=== PATIENT | male | born 1965 | race Caucasian/White ===

== ENCOUNTER 2017-04-12 12:43 | Inpatient (IN) | payer MEDICARE, OTHER ==
--- NOTE | ~2017-04-12 | CN ---
Consultation Report [facility] [place] [facility] [address] [place]. [address] NAME: LEONIE RODRIGUEZ : 63 STATUS : ADM IN [facility]#: [id number] AGE: 52 ADM/REG DATE : 04/12/17 MR#: [id number] REPORT SERV DATE: 04/13/17 DICTATED BY: DATE: REPORT STATUS : Draft TRANSCRIBED BY: MODL DATE: 04/13/17 NEUROLOGY CONSULTATION DATE OF CONSULTATION: 04/13/2017 REASON FOR CONSULT: Seizure. HISTORY OF PRESENT ILLNESS: This is a 52-year-old male with history of glioblastoma multiforme status post resection as well as symptomatic seizure, presented to [facility] as a transfer from Dr. Bourgeois's office as the patient was noted to be unresponsive and was noted to have shortness of breath. The patient was intubated and placed on propofol drip, with the patient's propofol drip turned off this morning. The patient afterwards was noted to have jerking of the head and shoulders and does not resolve as the reason patient was placed back on propofol and Neurology was consulted. No recent history of illness with fever, chills, nausea, vomiting was reported. The patient's sister discussed with the nursing staff and reports the patient does have difficulties with seizure control particularly when usp adjust the patient's seizure medications resulting in either seizure or unresponsive episodes. The patient is currently back on propofol infusion. The patient does not have any recent seizure medication adjustment after discharged from hospital in October 2016. PAST MEDICAL HISTORY: Significant for history of previous status epilepticus as well as history of seizure disorder, intractable. The patient does have a history of stroke as well as glioblastoma multiforme status post resection with the patient noted to have type 2 diabetes, and history of renal failure. SOCIAL HISTORY: Currently unable to be obtained. FAMILY HISTORY: Currently unable to be obtained. HOME MEDICATIONS: Consist of Keppra, Lamictal as well as Vimpat, all of which continued during current hospital stay. The patient in addition is also currently on propofol drip. REVIEW OF SYSTEMS: Unable to be obtained due to patient's mental status. PHYSICAL EXAMINATION: VITAL SIGNS: The patient's overnight vital signs demonstrated T-max of 99.1, heart rate of 62 to 95, respirations of 11 to 18, and blood pressure of 80 to 136 over 51 to 81. GENERAL: The patient is well developed, well nourished, in no acute distress. CARDIOVASCULAR: Regular rate and rhythm. No carotid bruits were otherwise auscultated. PULMONARY: Clear to auscultation bilaterally. NEUROLOGICAL: Generally, the patient is intubated on propofol sedation was on board. The patient does not follow any commands and does not have any verbal response. Pupils equal, Consultation Report [id number] [facility] [place]. [address] NAME: LEONIE RODRIGUEZ : 63 STATUS : ADM IN PAT#: [id number] AGE: 52 ADM/REG DATE : 04/12/17 MR#: [id number] REPORT SERV DATE: 04/13/17 DICTATED BY: DATE: REPORT STATUS : Draft TRANSCRIBED BY: MODL DATE: 04/13/17 round, and reactive to light. Horizontal eye movement was noted to be present on oculocephalic maneuver. Blink to threat response was absent in bilateral vision carcamo. The patient was noted to have corneal reflex in the left. No clear corneal reflex was seen on the right. Gag reflex was otherwise demonstrated, with the patient demonstrated grimace to noxious stimulation in bilateral jaw. The patient does demonstrate grimace as well as trace withdrawal to noxious stimulation in the bilateral upper extremity and right lower extremity. No withdrawal or grimace was noted in the left lower extremity noxious stimulation. Deep tendon reflex was otherwise trace. Gait and cerebellar examination was unable to be performed secondary to patient's mental status and intubation state. LABORATORY STUDIES: Demonstrated white blood cell count of 18.7, hemoglobin of 11.1, hematocrit of 32.9, platelet count of 266. Chemistry panel: Sodium of 142, potassium 4.3, chloride 111, bicarb of 20, BUN of 23, creatinine of 1.60, glucose of 275, calcium of 8.1, magnesium 1.6. Serum ammonia of 54. The patient was noted to have CPK over 556. CT scan of the brain on 04/12/2017 was reviewed. The patient was noted to have previous craniectomy in the left hemisphere, with the patient demonstrated encephalomalacia in the left MCA territory, in the left frontal as well as temporal area, with the patient noted to have atrophy and chronic white matter diseases. IMPRESSION: Seizure, likely symptomatic from previous GBM. We will increase the patient's Vimpat to 200 mg p.o. b.i.d. We will obtain EEG for evaluation on 04/14/2017. Please continue Keppra as well as Lamictal. RECOMMENDATION: 1. Increase the Vimpat to 200 mg p.o. b.i.d. 2. EEG on 04/14/2017. 3. Continue Keppra and Lamictal. [facility]/MODL Tutu Mendez MD / [id number] CC: Cori Robertson MD
--- NOTE | ~2017-04-12 | HP ---
History And Physical [id number] [place]. [address] NAME: LEONIE RODRIGUEZ : 63 STATUS : ADM IN [facility]#: [id number] AGE: 52 ADM/REG DATE : 04/12/17 MR#: [id number] REPORT SERV DATE: 04/25/17 DICTATED BY: FOSTER AGUERO DATE: 04/25/17 REPORT STATUS : Draft TRANSCRIBED BY: MODCharlotte DATE: 04/25/17 DATE OF ADMISSION: 04/12/2017 This note will serve both as an acceptance note as the patient is being transferred back to the Critical Care Service as well as a procedure note. HISTORY OF PRESENT ILLNESS: Mr. Rodriguez is an unfortunate, 52-year-old man with a history of glioblastoma multiforme with significant neurologic sequelae, poor neuro status, and chronic metabolic encephalopathy, who had recently been in the intensive care unit because of aspiration pneumonitis. He was stabilized and had a new PEG tube placed. He was on the medical floor and this morning, at around 6 o'clock, was found to be poorly responsive, hypoxemic, and a code blue was called. We responded to the bedside and found that the patient still had positive pressure but had agonal breathing. Respiratory Therapy, critical care nurses, and myself responded to the code, and the patient was intubated using a laryngoscope with good color change on end-tidal CO2 and good breath sounds bilaterally. He had high airway pressures as evidenced by very high resistance to bagging but his oxygenation stabilized, and we moved him to the critical care unit. His past medical history, social history, and family histories have been outlined on this admission on the notes from Critical Care and hospitalist. There was no family at bedside, and the patient was unresponsive. PHYSICAL EXAMINATION: GENERAL: On exam, he appears chronically ill. 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 NECK: Supple with no lymphadenopathy and no JVD. He was mottled throughout despite good blood pressure. LUNGS: Had a very prolonged expiratory phase and poor air flow. CARDIOVASCULAR: He had S1 and S2, which are tachycardic. ABDOMEN: Benign with a prior right subcostal long-term, well-healed scar. EXTREMITIES: He had no edema, no clubbing, no cyanosis, but poor peripheral pulses. ASSESSMENT/PLAN: 1. Respiratory failure. The patient has acute respiratory failure in the setting of poor mental status. The concern is for mechanical respiration. He does have a PEG tube but has very poor mental status and does not clear secretions well. In addition to that following intubation, for which he had very high peak pressures. The patient has a sulcus sign on the right consistent with pneumothorax. He is now oxygenating well on 100% oxygen saturation with a high blood pressure, so does not have tension physiology though of course this is of concern since he is on the ventilator, and he is having a repeat chest radiograph now and we will have a preferably smaller bore chest tube placed. 2. He will be started on electrolyte protocol, bronchodilator protocol, and steroids because of his high peak pressures and increased airway resistance. Care was discussed with the Hospitalist Service and with our colleagues from Critical Care who follow the patient up during the daytime. History And Physical [address] [address] NAME: LEONIE RODRIGUEZ : 63 STATUS : ADM IN [facility]#: [id number] AGE: 52 ADM/REG DATE : 04/12/17 MR#: [id number] REPORT SERV DATE: 04/25/17 DICTATED BY: FOSTER AGUERO DATE: 04/25/17 REPORT STATUS : Draft TRANSCRIBED BY: FINN DATE: 04/25/17 TASIA/FINN Foster Aguero M.D. / [id number] CC: Cori Robertson MD
--- NOTE | ~2017-04-12 | HP ---
History And Physical [address] [place]. [address] NAME: LEONIE RODRIGUEZ : 63 STATUS : ADM IN [facility]#: [id number] AGE: 52 ADM/REG DATE : 04/12/17 MR#: [id number] REPORT SERV DATE: 04/12/17 DICTATED BY: GUANAKITO BRIGGS DATE: 04/12/17 REPORT STATUS : Draft TRANSCRIBED BY: MODL DATE: 04/12/17 DATE OF ADMISSION: 04/12/2017 HISTORY OF PRESENT ILLNESS: A 52-year-old white male, who was transported to the hospital for further evaluation. The patient was seen in Dr. Bourgeois's office and found to be unresponsive and short of breath. The patient has a very complicated neurologic history, which includes seizures and previous history of glioblastoma resection and treatment. Apparently, he was on Rocephin a few days ago, and there was some concern of a drug reaction and that medication was stopped. The patient shows up in the emergency room hypotensive with a blood pressure of 86/58 and had been lower than that on some of the vitals. Due to mental status, underlying respiratory distress, and hypotension, the patient was intubated and put on the ventilator in the emergency room and also a left subclavian triple-lumen catheter was placed by the emergency room physician. In the ER, he was given at least 2 L of normal saline IV fluids. Given subcu epinephrine as well as one dose of Solu-Medrol, Pepcid, and Benadryl for possible drug reaction. He also had to be started on Levophed because of low blood pressure. He was sent to the CT scanner and head CT did not show anything acute. CT of the chest showed elevation of the right hemidiaphragm, which is chronic, which showed a right lower lobe consolidation concerning for pneumonia, and there is a little bit of a small right pleural fluid as well and some atelectasis at the left lung base. Family was not present upon my evaluation, so I have no other history to go by. REVIEW OF SYSTEMS: Unable to be obtained. PAST MEDICAL HISTORY: History of status epilepticus; chronic seizures; obstipation; stroke, which has left him unable to walk or speak, which happened in 2009; hypertension; history of glioblastoma; type 2 diabetes; history of renal failure. PAST SURGICAL HISTORY: Glioblastoma surgery and cholecystectomy. SOCIAL HISTORY: Unable to be obtained. FAMILY HISTORY: Unable to be obtained. HOME MEDICATIONS: Reviewed. PHYSICAL EXAMINATION: VITAL SIGNS: Per nursing flow sheet. GENERAL: No acute distress, but the patient is intubated on mechanical ventilation and sedated with propofol. ENT: Normocephalic and atraumatic. NECK: Trachea midline. SKIN: Diffuse light red rash that is blotchy on the face, arms, chest, and legs. HEART: Regular rate and rhythm. No murmurs. LUNGS: Clear anteriorly. Ventilator settings reviewed. Lower lobe rales. GASTROINTESTINAL: Slightly firm, distended, but nontender. No guarding or rebound. History And Physical [address] [address] NAME: LEONIE RODRIGUEZ : 63 STATUS : ADM IN [facility]#: [id number] AGE: 52 ADM/REG DATE : 04/12/17 MR#: [id number] REPORT SERV DATE: 04/12/17 DICTATED BY: GUANAKITO BRIGGS DATE: 04/12/17 REPORT STATUS : Draft TRANSCRIBED BY: FINN DATE: 04/12/17 GENITOURINARY: The patient is currently in a diaper and has a Hickey catheter in place. EXTREMITIES: No obvious edema in either legs. NEUROLOGIC: Sedated. LABORATORY VALUES: Reviewed. CT scans reviewed. ASSESSMENT AND PLAN: 1. Septic shock. 2. Respiratory failure-acute hypoxic. 3. Right lower lobe pneumonia, possible aspiration. 4. Acute kidney injury. 5. Elevated liver enzymes. 6. Hyperglycemia and type 2 diabetes. 7. Seizure history and stroke history with debilitation. 8. Previous glioblastoma. 9. Drug reaction. We will start the patient on broad-spectrum antibiotics to include vancomycin and Zosyn. The patient will be cultured blood, urine, and sputum. Urine antigens will be checked. Ventilator settings and management will be addressed. He is currently on propofol for sedation. As needed chest x-ray and ABGs will be done to follow. Aggressive fluid resuscitation as needed, and the patient is currently on pressors. We will check a C difficile. For now, we will keep patient on Benadryl and watch blood sugars. Put the patient on sliding scale of insulin. 55 minutes of critical care time. CEP/MODL Guanakito Briggs DO / [id number] CC: Cori Robertson MD UNKNOWN
--- NOTE | ~2017-04-12 | CN ---
Consultation Report [facility] [address] [place]. [address] NAME: LEONIE RODRIGUEZ : 63 STATUS : ADM IN PAT#: [id number] AGE: 52 ADM/REG DATE : 04/12/17 MR#: [id number] REPORT SERV DATE: 04/21/17 DICTATED BY: GWENDOLYN LIZAMA DATE: 04/20/17 REPORT STATUS : Draft TRANSCRIBED BY: MODL DATE: 04/20/17 CONSULTATION NOTE DATE OF CONSULTATION: 04/20/2017 HISTORY OF PRESENT ILLNESS: This is a 52-year-old white male, status post surgery for glioblastoma, admitted with seizures, recent aspiration pneumonia, was treated with Rocephin, had a drug reaction to that, was on the vent. Once extubated, had change in mental status, unable to follow commands. Baseline study to determine for aspiration was inconclusive, but they were unable to do modified barium swallow due to inability to follow commands and request has been made through hospitalist, Critical Care, and Neuro for PEG tube. He had a PEG tube in the past with aspirations and has had that out for some time. Also, has history of hypertension, diabetes mellitus, chronic kidney disease. He is status post cystectomy. He has had an ERCP in the past, sphincterotomy, and stone removal. Chest x-ray today with minimal right basilar atelectasis. Hemoglobin 11.8, white count of 9600. Family history, social history, otherwise unremarkable. Has an ultrasound that was essentially unremarkable. PHYSICAL EXAMINATION: GENERAL: Well-developed white male with expressive aphasia, unable to follow commands. HEENT: Has an NG-tube in place. NECK: Negative. CHEST: Scattered rhonchi. HEART: Regular rate and rhythm without murmur or gallop. ABDOMEN: Soft, nontender. Bowel sounds active. EXTREMITIES/NEUROLOGIC: Pertinent for his mental status. No current seizures. ASSESSMENT: 1. Status post glioblastoma with surgery; also has past history of seizure disorder, increased recently; aspiration pneumonia, treated with Rocephin, had a reaction to Rocephin, required intubation. Once off vent, change in mental status, unable to follow commands. Request for PEG tube. 2. Hypertension. 3. Diabetes mellitus. 4. Chronic renal disease. 5. Past history of cerebrovascular accident. SUGGESTION: Talked with sister about the risks and benefits. She agrees first to proceed on with PEG placement. Thank you very much for this consultation. Consultation Report [facility] [address] [place]. [address] NAME: LEONIE RODRIGUEZ : 63 STATUS : ADM IN [facility]#: [id number] AGE: 52 ADM/REG DATE : 04/12/17 MR#: [id number] REPORT SERV DATE: 04/21/17 DICTATED BY: GWENDOLYN LIZAMA DATE: 04/20/17 REPORT STATUS : Draft TRANSCRIBED BY: FINN DATE: 04/20/17 DC/FINN Gwendolyn Lizama M.D. / [id number] CC: Cori Robertson MD
--- NOTE | ~2017-04-12 | IDS ---
Interim Discharge Summary [facility] [address] [place]. [address] NAME: LEONIE RODRIGUEZ : 63 STATUS : ADM IN [facility]#: [id number] AGE: 52 ADM/REG DATE : 04/12/17 MR#: [id number] REPORT SERV DATE: 04/21/17 DICTATED BY: NICOLETTE CHA DATE: 04/21/17 REPORT STATUS : Draft TRANSCRIBED BY: MODL DATE: 04/21/17 ADMISSION DATE: 04/12/2017 DISCHARGE DATE: DATE OF SUMMARY: 04/21/2017. The patient has a history of glioblastoma multiforme. He entered the hospital with sepsis and septic shock, now resolved. He has a seizure disorder. He has diabetes mellitus type 2. He is awaiting PEG tube placement today. Has finished his antibiotic course of therapy. He is taking Lamictal 150 mg p.o. b.i.d. and Vimpat 150 mg p.o. b.i.d. as well as Keppra 1000 mg p.o. b.i.d. He is on Linzess for his bowels, and received Zosyn and Levemir. His x ray shows a chronically elevated right hemidiaphragm. He has had problems with mucus impaction of bronchi at outside, now partially resolved. He is being evaluated by [facility] for placement, and he has had several EEGs which show presence of generalized swelling and breach rhythm in left centrotemporal area suggesting preexisting skull defect. No seizures were captured at this point. He is allergic to Rocephin. KAMRAN/FINN Nicolette Cha M.D. / [id number] CC: Cori Robertson MD
--- NOTE | ~2017-04-12 | OP ---
Record Of Operation [facility] [address] [place]. [address] NAME: LEONIE RODRIGUEZ : 63 STATUS : ADM IN [facility]#: [id number] AGE: 52 ADM/REG DATE : 04/12/17 MR#: [id number] REPORT SERV DATE: 04/25/17 DICTATED BY: SHWETA SAUNDERS DATE: 04/25/17 REPORT STATUS : Draft TRANSCRIBED BY: FINN DATE: 04/25/17 DATE OF PROCEDURE: 04/25/2017 PULMONARY CRITICAL CARE MEDICINE PROCEDURE NOTE PROCEDURE: Insertion of a right Thal Quick 24-Montserratian chest tube. INDICATION: Right pneumothorax. CONSENT: Emergent, no family are available by telephone despite multiple phone calls to three separate numbers. ANESTHETIC: 1% lidocaine without epinephrine approximately 2 mL intradermally. PROCEDURE IN DETAIL: After being contacted by radiology for right pneumothorax noted on chest x-ray following code blue. The patient was positioned in the usual fashion. Prepped and draped using chlorhexidine and maximal sterile barriers including cap, gown, gloves, mask, and sterile drape, and a small bore needle was used to instill 1% lidocaine approximately 1 to 2 mL intradermally for satisfactory local anesthetic. Subsequently, a finder needle was used to advance into the right pleural space in the axillary line approximately 5th to 6th rib space and air bubbles were aspirated. Guidewire was fed through the finer needle and subsequently an 11 blade scalpel was used to make a small jessica, and subsequent dilators were passed using Seldinger technique, and ultimately a 24-Montserratian Thal Quick chest tube was inserted posterior to the right lung, and connected to an -10 suction with evacuation of the right pneumothorax. A followup chest x-ray confirmed placement of the tube posterior to the right lung, and evacuation of pneumothorax, and the tube was converted to water seal while the patient is on mechanical ventilation. Family was updated on the outcome of the procedure when they arrived for visiting hours later in the day. IMMEDIATE COMPLICATIONS: None. ESTIMATED BLOOD LOSS: Less than 1 mL. Please see separate handwritten Pulmonary Critical Care daily progress note for additional details of today's events. TRISTEN/FINN Shweta Saunders MD / [id number] Record Of Operation [address] [place]. [address] NAME: LEONIE RODRIGUEZ : 63 STATUS : ADM IN PAT#: [id number] AGE: 52 ADM/REG DATE : 04/12/17 MR#: [id number] REPORT SERV DATE: 04/25/17 DICTATED BY: SHWETA SAUNDERS DATE: 04/25/17 REPORT STATUS : Draft TRANSCRIBED BY: FINN DATE: 04/25/17 CC: Shweta Saunders MD
--- NOTE | ~2017-04-12 | DS ---
Discharge Summary [address] [place]. [address] NAME: LEONIE RODRIGUEZ : 63 STATUS : DIS IN PAT#: [id number] AGE: 52 ADM/REG DATE : 04/12/17 MR#: [id number] REPORT SERV DATE: 05/13/17 DICTATED BY: SATURNINO WEST DATE: 05/12/17 REPORT STATUS : Draft TRANSCRIBED BY: MODL DATE: 05/12/17 ADMISSION DATE: 04/12/2017 DISCHARGE DATE: 05/03/2017 The patient is a 52-year-old gentleman who was transported from Dr. Bourgeois's office, unresponsive and short of breath. He has had a glioblastoma and seizures and status epilepticus and was thought to be septic and in respiratory failure due to possibly to right lower lobe pneumonia. He also had acute kidney injury, probably shock liver, diabetes, and history of stroke. The patient was originally admitted on 04/12/2017. He declined over the next several weeks and on 05/03/2017 Palliative Care was consulted who recommended that the patient be moved to hospice for the inevitable end. This was done on 05/03/2017 in the evening. The patient actually the morning of 05/04/2017 at 0455 hours in the morning. In the meantime, we kept him comfortable with morphine and scopolamine patch for secretions and the patient peacefully at 0455 hours on 05/04/2017. DICTATED BY: Saturnino West MD GP/FINN Saturnino West MD / [id number] CC: Eugenio Loredo MD
--- NOTE | ~2017-04-12 | IDS ---
Interim Discharge Summary [facility] [address] [place]. [address] NAME: LEONIE RODRIGUEZ : 63 STATUS : ADM IN PAT#: [id number] AGE: 52 ADM/REG DATE : 04/12/17 MR#: [id number] REPORT SERV DATE: 04/28/17 DICTATED BY: SHWETA SAUNDERS DATE: 04/28/17 REPORT STATUS : Draft TRANSCRIBED BY: MODL DATE: 04/28/17 ADMISSION DATE: 04/12/2017 DISCHARGE DATE: Pulmonary Critical Care Interim Discharge Summary This interim summary will cover dates ranging from 04/24/2017 through 04/28/2017, during which I participated in his care. BRIEF HPI: Please see the multiple previous interim discharge summaries as well as Mr. Rodriguez's admitting history and physical from both the Hospital Medicine and Pulmonary Critical Care Medicine Service. Mr. Rodriguez is an unfortunate 52-year-old gentleman, who has a vague history of GBM, status post resection and subsequent chemo radiation in 1992 (there has been some question about the diagnosis due to his prolonged survival), who initially presented to our facility with a drug eruption from Dr. Bourgeois's office after being [facility]. He was staying in [place]. He was intubated for airway protection and stayed on mechanical ventilation in the MICU for some time. He was ultimately able to be extubated after aggressive diuresis and was moved to a monitored bed, where he remained for several days and ultimately developed aspiration event and acute hypoxemic respiratory failure leading to a Code Blue being called, although he never actually lost his pulse. He did have agonal breathing and he was intubated urgently by Dr. Aguero, and moved to CCU, where he remained for most of the week. He was initially quite hypoxemic, but over the course of the next couple of days was successfully weaned to minimal oxygen support. His sedation was lightened. He became more alert and awake, and he was visited multiple times by his sister who is his primary caregiver. In light of some questions that she had with regard to code status and planning for his future care, palliative care was consulted, and Dr. Terrazas, and nurse practitioner, Esther met with the patient and the patient's sister several times this week including one particularly prolonged meeting on 04/27/2017 greater than 90 minutes, during which time they clarified goals of care, and he was made a no shock, no CPR, no re- intubation, effectively a full DNR once extubated. His sister requested to be present for extubation and he was successfully liberated from the ventilator on the afternoon of 04/28/2017 and is now full DNR. He is tolerating minimal oxygen support and is much more interactive with his family, whose goals include ongoing care with goal of being able to discharge safely from the hospital within the parameters of being a full DNR as noted above. He is now being transferred to a monitored bed with the following active problems: 1. Acute hypoxemic respiratory failure, status post successful extubation on 04/28/2017, after multiple successful spontaneous breathing trials over the past couple of days (the patient's sister was fairly insistent that she be present for extubation, but was not answering her phone or at the bedside over the last 24 hours). She was actually present for visiting hours when he was ultimately extubated on the afternoon of 04/28/2017. 2. Recurrent aspiration pneumonia, status post insertion of PEG tube during this admission, status post course of antibiotics. 3. Tmicz-ww-fswzkjt encephalopathy, on multiple antiepileptic drugs. He is at this point, Interim Discharge Summary [address] [address] NAME: LEONIE RODRIGUEZ : 63 STATUS : ADM IN [facility]#: [id number] AGE: 52 ADM/REG DATE : 04/12/17 MR#: [id number] REPORT SERV DATE: 04/28/17 DICTATED BY: SHWETA SAUNDERS DATE: 04/28/17 REPORT STATUS : Draft TRANSCRIBED BY: MODCharlotte DATE: 04/28/17 at his neurologic baseline, and is being followed along by Dr. Mendez for encephalopathy and his seizure disorder. He had no seizures during this admission. 4. Right pneumothorax was detected on the morning of 04/25/2017. The patient has a chest tube in place, which was inserted for treatment of his pneumothorax, the suspicion is that when he was quite hypoxemic and being bagged during code blue event that this was the source of the pneumothorax. We will be consulting Dr. Francis to assist with ongoing clamping and ultimate removal of his chest tube on the floor. He has been on negative 10 suction over the last couple of days as he has developed recurrent small pneumothorax with water seal, also on positive-pressure ventilation. Now, he is extubated. We will begin additional trials of a clamping. He already has orders for tube to be clamped at 06:00 a.m. on the morning of 04/29/2017 and a followup chest x-ray a few hours later for Dr. Francis's assessment on Monday morning. 1. Type 2 diabetes mellitus with stable blood sugars, goal was 140 to 180 while critically ill. 2. Prophylaxis. He is on Lovenox and a proton pump inhibitor. 3. Home medications and tube feeds via PEG tube in addition to free water. 4. He has peripheral IVs and Hickey catheter, which can be removed after he finishes the course of diuretics that was started today. 5. He is a full DNR, please see Dr. Terrazas's advanced directive form completed on 04/27/2017 following family meeting with the patient's sister. 6. The patient's sister Matias Resendez, area code [phone] is his primary contact. There were several additional family members' contact information in the chart. The patient will be transferred to the Hospital Medicine Service this evening or tomorrow morning. Please call with questions. He has morning labs ordered for tomorrow. TRISTEN/FINN Shweta Saunders MD / [id number] CC: Shweta Saunders MD
--- NOTE | ~2017-04-12 | DS ---
Discharge Summary [facility] [address] [facility] [place]. [address] NAME: LEONIE RODRIGUEZ : 63 STATUS : DIS IN PAT#: [id number] AGE: 52 ADM/REG DATE : 04/12/17 MR#: [id number] REPORT SERV DATE: 05/04/17 DICTATED BY: ORVILLE LIANG DATE: 05/03/17 REPORT STATUS : Draft TRANSCRIBED BY: MODL DATE: 05/03/17 ADMISSION DATE: 04/12/2017 DISCHARGE DATE: 05/03/2017 DISCHARGE DISPOSITION: Hospice [facility]. Currently, inpatient hospice and transition to facility hospice. COMFORT MEASURES: DNR. DISCHARGE DIAGNOSES: 1. Recurrent aspiration pneumonia, status post insertion of PEG during this hospital stay and broad-spectrum antibiotics. 2. Acute hypoxic respiratory failure, requiring intubation. 3. Acute on chronic encephalopathy, on multiple antiepileptic drugs. 4. Right pneumothorax, prior chest tube and subsequent removal. 5. Type 2 diabetes. 6. Septic shock on arrival secondary to right lower lobe pneumonia with aspiration component. 7. Acute kidney injury, elevated liver enzymes on admission. 8. Hyperglycemia. 9. Stroke history with chronic debilitation. 10.Glioblastoma multiforme, drug reaction. HOSPITAL COURSE: Please see H and P for complete details of HPI along with multiple interim summaries from transitional care from ICU to floor throughout hospital stay. Briefly, Mr. Rodriguez is a 52-year-old male with chronic debility with glioblastoma multiforme, status post resection, chemo. Subsequently, seizure history, who was reported to have a drug eruption from Dr. Bourgeois's office for an elective EEG in residential at [facility]. He was intubated for airway protection, on mechanical vent, aggressively diuresed, did have aspiration component despite having PEG tube placement. He was still respiratory code. At that point, the patient was reintubated with hypoxia. Chest tube was placed with noted pneumothorax during respiratory code. The patient was then was also evaluated by Neurology throughout the course due to glioblastoma multiform and seizure history. Palliative Care was also consulted. The patient was DNR, was converted DNR due to continued overall clinical decline and worsening overall progress. After extubation, the patient was converted to BiPAP. Chest tube was able to be successfully removed with minimal drainage, however, the patient appears to have continued difficulty with protecting airway with repeat aspiration component due to overall debility, glioblastoma multiforme, seizure history, sepsis, hypoxemia, multiple intubations, and overall continued progressive decline. The patient now also had repeated radiologic whiteout of right lung with tachypnea, increased O2 demands continued at 48 hours with goals of care have been rediscussed with the patient's family as the patient has also had variable changes in creatinine output, alertness. The patient appears to be in the current active stages of an active dying process. Family requesting comfort measures. Hospice consulted and [facility] resuming care through possibly his final stages of life. All questions are processed. Goals were discussed in depth with the patient's sister at Discharge Summary [address] [place]. [address] NAME: LEONIE RODRIGUEZ : 63 STATUS : DIS IN PAT#: [id number] AGE: 52 ADM/REG DATE : 04/12/17 MR#: [id number] REPORT SERV DATE: 05/04/17 DICTATED BY: ORVILLE LIANG DATE: 05/03/17 REPORT STATUS : Draft TRANSCRIBED BY: MODL DATE: 05/03/17 bedside, who has been primary caregiver and power of deputy prosecuting attorney throughout this hospital stay. Radiologic findings have been reviewed and discussed by this typewriter ribbon winder. Palliative care team and Pulmonary team will continue to focus on quality, dignity, and comfort as a transition to hospice care. Greater than 30 minutes were spent with discharge planning. Discussion with the patient's family, coordinate of care. DICTATED BY: MD LING Mayberry/FINN Orville Liang MD / [id number] CC: Orville Liang MD
--- NOTE | ~2017-04-12 | EGD ---
EGD REPORT [facility] [address] [place]. [id number] NAME: LUIS ANTONIO RODRIGUEZ : 63 STATUS : ADM IN PAT#: [id number] AGE: 52 ADM/REG DATE : 04/12/17 MR#: [id number] REPORT SERV DATE: 04/21/17 DICTATED BY: GWENDOLYN LIZAMA DATE: 04/21/17 REPORT STATUS : Draft [facility]ANSCRIBED BY: [facility] DATE: 04/21/17 Endoscopy Center Patient Name: Luis Antonio Rodriguez Date of : 1965 Attending MD: GWENDOLYN LIZAMA MD Procedure Date No Time: 04/21/2017 Procedure: Upper GI endoscopy Indications: Place PEG due to impaired swallowing, Place PEG due to neurological disorder causing impaired swallowing Medicines: as per anesthesia Complications: No immediate complications. Procedure: Pre-Anesthesia Assessment: - ASA Grade Assessment: III - A patient with severe systemic disease. After obtaining informed consent, the endoscope was passed under direct vision. Throughout the procedure, the patient's blood pressure, pulse, and oxygen saturations were monitored continuously. The GIF [id number] was introduced through the mouth, and advanced to the third part of duodenum. The upper GI endoscopy was accomplished without difficulty. The patient tolerated the procedure. Findings: The examined esophagus was normal. A small hiatus hernia was present. The examined duodenum was normal. The patient was placed in the supine position for PEG placement. The stomach was insufflated to appose gastric and abdominal carranza. A site was located in the body of the stomach with good transillumination for placement. The abdominal wall was marked and prepped in a sterile manner. The area was anesthetized with 4 mL of 1% lidocaine. The trocar needle was introduced through the abdominal wall and into the stomach under direct endoscopic view. A snare was introduced through the endoscope and opened in the gastric lumen. The guide wire was passed through the trocar and into the open snare. The snare was closed around the guide wire. The endoscope and snare were removed, pulling the wire out through the mouth. A skin incision was made at the site of needle insertion. The externally removable 24 Fr EndoVive Safety gastrostomy tube was lubricated. The G-tube was tied to the guide wire and pulled through the mouth and into the stomach. The trocar needle was removed, and the gastrostomy tube was pulled out from the stomach through the skin. The external bumper was attached to the gastrostomy tube, and the tube was cut to remove the guide wire. The final position of the gastrostomy tube was confirmed by relook endoscopy, and skin marking EGD REPORT [address] [place]. [address] NAME: LUIS ANTONIO RODRIGUEZ : 63 STATUS : ADM IN LOC[facility]IN [facility]#: [id number] AGE: 52 ADM/REG DATE : 04/12/17 MR#: [id number] REPORT SERV DATE: 04/21/17 DICTATED BY: GWENDOLYN LIZAMA DATE: 04/21/17 REPORT STATUS : Draft TRANSCRIBED BY: [employer] DATE: 04/21/17 noted to be 2.5 cm at the external bumper. The final tension and compression of the abdominal wall by the PEG tube and external bumper were checked and revealed that the bumper was loose and lightly touching the skin and that the PEG balloon was loose and lightly touching the stomach. The feeding tube was capped, and the tube site cleaned and dressed. Impression: - Normal esophagus. - Hiatus hernia. - Normal examined duodenum. - An externally removable PEG placement was successfully completed. Recommendation: - Please follow the post-PEG recommendations. Procedure Code(s): --- Professional --- 22647, Esophagogastroduodenoscopy, flexible, transoral; with directed placement of percutaneous gastrostomy tube Diagnosis Code(s): --- Professional --- K44.9, Diaphragmatic hernia without obstruction or gangrene R13.10, Dysphagia, unspecified Z43.1, Encounter for attention to gastrostomy R29.81, Other symptoms and signs involving the nervous system CPT copyright 2013 [employer]. All rights reserved. The codes documented in this report are preliminary and upon thermal technician review may be revised to meet current compliance requirements. GWENDOLYN LIZAMA MD 04/21/2017 1:26 PM This report has been signed electronically. Number of Addenda: 0 Note Initiated On: 04/21/2017 12:41 PM Scope Withdrawal Time 0 hours 0 minutes 0 seconds [address] [place] [address]
--- NOTE | ~2017-04-12 | EEG ---
Electroencephalogram [facility] [address] [place]. [address] NAME: LEONIE RODRIGUEZ : 63 STATUS : ADM IN PAT#: [id number] AGE: 52 ADM/REG DATE : 04/12/17 MR#: [id number] REPORT SERV DATE: 04/14/17 DICTATED BY: DATE: REPORT STATUS : Draft TRANSCRIBED BY: MODL DATE: 04/14/17 CLINICAL INDICATIONS: Seizure-like activities. DESCRIPTION: This EEG was performed using 10/20 electrode placement system. During the EEG study, generalized slowing was seen with a predominant occipital rhythm of roughly 4-5 hertz. The patient was noted to have breach rhythm in T3 as well as C3 electrodes persistent throughout the EEG study. Otherwise, no electrographic seizure activity was noted. No seizure discharge was seen. The patient demonstrated involuntary perioral chewy motion during the EEG study, but no other clinical seizure-like activity was captured. No corresponding electrographic seizure was noted with chewing activities. The patient achieved drowsy state during the EEG study. Photic stimulation was performed, no clear driving response was seen. Hyperventilation was not performed secondary to the patient's intubation status. INTERPRETATION: This EEG study obtained during awake and drowsy state may be considered abnormal secondary to: 1. Presence of generalized slowing. 2. Breach rhythm in the left centrotemporal area, suggesting pre-existing skull defect. No electrographic seizure was otherwise captured. No seizure discharge was seen. The patient does demonstrate involuntary chewy motions during the EEG study without corresponding the electrographic seizures. Clinical correlation is otherwise recommended. [facility]/MODL Tutu Mendez MD / [id number] CC: Cori Robertson MD
[2017-04-12 12:09] LABS: BASOPHILS 0.1 %; BASOPHILS ABSOLUTE 0.01 10/3/uL (0.0-0.16); EOSINOPHILS 0.1 %; EOSINOPHILS ABSOLUTE 0.01 10/3/uL (0.0-0.53); ER CBC TAT 0 Hrs 08 Mins; HEMATOCRIT 45.9 % (40.0-51.0); HEMOGLOBIN 15.4 g/dL (13.6-17.8); IMMATURE GRANULOCYTES 2.4 %; IMMATURE GRANULOCYTES ABSOLUTE 0.21 10/3/uL (0.0-0.11); LYMPHOCYTES 6.9 %; LYMPHOCYTES ABSOLUTE 0.61 10/3/uL (0.67-4.30); MANUAL DIFF NO %; MEAN CORPUS HGB CONC 33.6 g/dL (32.0-36.0); MEAN CORPUSCULAR HEMOGLOB 30.4 pg (26.0-34.0); MEAN CORPUSCULAR VOLUME 90.5 fL (80-100); MEAN PLATELET VOLUME 9.8 fL (9.2-13.0); MONOCYTES ABSOLUTE 0.09 10/3/uL (0.21-1.20); NEUTROPHILS 89.5 %; NEUTROPHILS ABSOLUTE 7.97 10/3/uL (2.02-8.40); PLATELET COUNT 326 10/3/uL (150-400); RBC DISTRIBUTION WIDTH 13.9 % (12.0-16.0); RED CELL COUNT 5.07 10/6/uL (4.7-6.1); WHITE BLOOD CELLS 8.9 10/3/uL (4.5-10.5)
[2017-04-12 12:17] LABS: PROTIME (NOT ORD) 13.2 SEC (12.0-14.5)
[2017-04-12 12:25] LABS: A/G RATIO 0.6 (0.7-1.9); ALBUMIN 2.7 G/DL (3.5-5.0); CHLORIDE, SERUM 104 MMOL/L (96-112); CO2 (CARBON DIOXIDE) 23 MMOL/L (24-34); CREATININE 1.59 MG/DL (0.70-1.30); GFR AFRICAN AMERICAN 57 ML/MIN (>=60); GFR NON AFRICAN AMERICAN 49 ML/MIN (>=60); GLOBULIN 4.9 G/DL (2.5-4.1); SGOT(AST) 90 U/L (5-40); SGPT(ALT) 87 U/L (5-65); SODIUM, SERUM 141 MMOL/L (135-148); TOTAL BILIRUBIN 0.5 MG/DL (0-1.2); TOTAL PROTEIN 7.6 G/DL (6.0-8.5)
[2017-04-12 12:26] LABS: ALKALINE PHOSPHATASE 394 U/L (45-117); BUN (BLOOD UREA NITROGEN) 13 MG/DL (6-23); CALCIUM, SERUM 10.2 MG/DL (8.5-10.4); GLUCOSE, SERUM 227 MG/DL (60-99)
[~2017-04-12 12:43] MED LIST: *UNABLE3; ALOE VESTA TOP; AMARYL4 PO; APRES10B PO; ASAB PO; ATROVENTUD INH; CALMOSEPTINE O2.5 OZ TOP; CALTRAT600 PO; CEFT5 PO; CLEOCIN300 MG PO; CONSTULOSE PO; D 5000 PO; DEBROX6.5 % OT; DEP250 PO; DEPAKOT500 PO; DEPAKUDL PO; DIVALPROEX ER PO; DUONEB INH; GLUCAGON IM; GLUCAGON SC; GLUCOSE TABS PO; GLUCPH PO; HALF81 PO; INSNOVR SC; KEPPRA1000 MG PO; KETOCONAZOLE 2% TOP; LAMICTAL10 PO; LAMICTAL150 MG PO; LAMICTAL200 MG PO; LANTUS SC; LEVOTHYROXIN100 MCG PO; LEVOTHYROXIN88 MCG PO; LEXAPRO10 PO; LINZESS 145 M145 MCG PO; LIPITOR10 PO; LIPITOR20 PO; LOTRISONE CREAM15 GM T; MIRALAX POWDER1 PKT PO; MIRALAXPKT OR; MIRALAXPKT PO; MULTIPLE VIT PO; NITROSTAT0.4 MG SL; NIZORSHAM T; NIZORSHAM TOP; NORV25 PO; NOVOLOG SC; PEP20 PO; PEPCID40 MG PEG; PRILO PO; PRIN10 PO; PROTONIX PO; PROVHFA INH; SYN1 PO; SYN88 PO; T PO; TUMSROLL NGT; VIMPAT100 MG PO; VIMPAT50 MG PO; VITAMIN D1000 UNI1 PO; VITAMIN D31000 UNIT PO; XIFAXAN550 MG PO; [UNRECOGNIZED DRUG - OTHER]
[2017-04-12 12:53] LABS: BE (BASE EXCESS) -9.4 MEQ/L (0 +/- 2.5); CARBOXYHEMOGLOBIN 1.4 % (0-3); DEVICE NC; HEMOBLOGIN CONTENT 13.1 G/DL (14-18); INSTRUMENT SERIAL # 8087; METHEMOGLOBIN 0.3 % (0-3); O2 CONTENT 16.7 VOL% (18-24); PCO2 (CO2 TENSION) 29 MMHG (35-45); PO2 (O2 TENSION) 68 MMHG (79-93); SAMPLE Arterial; pH 7.33 (7.37-7.43)
[2017-04-12 13:16] LABS: ASCORBIC ACID (UR NOT ORDER) NEG (NEG); BILIRUBIN, URINE NEGATIVE (NEG); ER URINALYSIS TAT 0 Hrs 13 Mins; KETONE, URINE NEGATIVE (NEG); LEUKOCYTE ESTERASE(NOT OR NEG (NEG); NITRITE (URINE) NEG (NEG); WBC (NOT ORDERED) (RFLEX) 1 (0-5)
[2017-04-12 13:37] LABS: PROCALCITONIN 8.87 ng/mL (<0.5)
[2017-04-12 18:59] LABS: FREE T4 1.75 NG/DL (0.76-1.46)
[2017-04-12 19:05] LABS: TROPONIN I 0.11 NG/ML (<0.05); ULTRASENSITIVE TSH 0.739 MCIU/ML (0.358-3.740)
[2017-04-12 19:18] LABS: AMPHETAMINES (NOT ORD) NEG (NEG); BARBITURATES (NOT ORDERED NEG (NEG); BENZODIAZEPINES (NOT ORD) NEG (NEG); CANNABINOIDS (THC) NEG (NEG); COCAINE (NOT ORDERED) NEG (NEG); OPIATES NEG (NEG); PHENCYCLIDINE(PCP) NEG (NEG); TRICYCLICS NEG (NEG)
[2017-04-12 20:38] LABS: ALLENS TEST Pos; BE (BASE EXCESS) -6.8 MEQ/L (0 +/- 2.5); HCO3 (ACTUAL BICARBONATE) 16.8 MEQ/L (23-27); INSTRUMENT SERIAL # 8083; MODE SIMV; OPERATOR ID 31061; PCO2 (CO2 TENSION) 29 MMHG (35-45); PO2 (O2 TENSION) 175 MMHG (79-93); PRESSURE SUPPORT 15 cm.H2O; SAMPLE Arterial; TIDAL VOLUME 600 ML; pH 7.38 (7.37-7.43)
[2017-04-12 23:43] LABS: CHLORIDE, SERUM 108 MMOL/L (96-112); CO2 (CARBON DIOXIDE) 21 MMOL/L (24-34); CREATININE 1.86 MG/DL (0.70-1.30); GFR AFRICAN AMERICAN 47 ML/MIN (>=60); GFR NON AFRICAN AMERICAN 40 ML/MIN (>=60); PHOSPHORUS, SERUM 3.6 MG/DL (2.5-4.5); POTASSIUM, SERUM 4.6 MMOL/L (3.5-5.3); SODIUM, SERUM 141 MMOL/L (135-148)
[2017-04-12 23:46] LABS: BUN (BLOOD UREA NITROGEN) 21 MG/DL (6-23); CALCIUM, SERUM 8.2 MG/DL (8.5-10.4); GLUCOSE, SERUM 309 MG/DL (60-99)
[2017-04-13 00:17] LABS: MEAN CORPUS HGB CONC 34.1 g/dL (32.0-36.0); MEAN CORPUSCULAR HEMOGLOB 30.4 pg (26.0-34.0); MEAN CORPUSCULAR VOLUME 89.1 fL (80-100); MEAN PLATELET VOLUME 9.6 fL (9.2-13.0); PLATELET COUNT 271 10/3/uL (150-400); RBC DISTRIBUTION WIDTH 14.4 % (12.0-16.0)
[2017-04-13 00:18] LABS: HEMATOCRIT 34.3 % (40.0-51.0); HEMOGLOBIN 11.7 g/dL (13.6-17.8); RED CELL COUNT 3.85 10/6/uL (4.7-6.1); WHITE BLOOD CELLS 18.8 10/3/uL (4.5-10.5)
[2017-04-13 00:19] LABS: MANUAL DIFF YES %
[2017-04-13 00:55] LABS: BAND NEUTROPHILS 42 %; LYMPHOCYTES 2 %; LYMPHOCYTES ABSOLUTE (CALC) 0.38 10/3/uL (0.67-4.30); NEUTROPHILS ABSOLUTE (CALC) 18.42 10/3/uL (2.02-8.40); PLATELET ESTIMATE ADQ (ADEQUATE); SEGMENTED NEUTROPHIL (0) 56 %; TOTAL NUCLEATED CELLS 100; TOXIC GRANULATION 1+
[2017-04-13 00:57] LABS: BURR CELLS 1+ (3-10/OIF) (0-2/OIF)
[2017-04-13 03:46] LABS: BE (BASE EXCESS) -5.8 MEQ/L (0 +/- 2.5); CARBOXYHEMOGLOBIN 0.6 % (0-3); HEMOBLOGIN CONTENT 11.1 G/DL (14-18); INSTRUMENT SERIAL # 8083; METHEMOGLOBIN 0.1 % (0-3); MODE CMV; O2 CONTENT 15.5 VOL% (18-24); OPERATOR ID 23712; PCO2 (CO2 TENSION) 35 MMHG (35-45); PO2 (O2 TENSION) 126 MMHG (79-93); SAMPLE Arterial; TIDAL VOLUME 550 ML; pH 7.36 (7.37-7.43)
[2017-04-13 05:02] LABS: HEMATOCRIT 32.9 % (40.0-51.0); HEMOGLOBIN 11.1 g/dL (13.6-17.8); MEAN CORPUS HGB CONC 33.7 g/dL (32.0-36.0); MEAN CORPUSCULAR HEMOGLOB 30.2 pg (26.0-34.0); MEAN CORPUSCULAR VOLUME 89.4 fL (80-100); MEAN PLATELET VOLUME 9.2 fL (9.2-13.0); PLATELET COUNT 266 10/3/uL (150-400); RED CELL COUNT 3.68 10/6/uL (4.7-6.1); WHITE BLOOD CELLS 18.7 10/3/uL (4.5-10.5)
[2017-04-13 05:06] LABS: MANUAL DIFF YES %
[2017-04-13 05:20] LABS: BUN (BLOOD UREA NITROGEN) 23 MG/DL (6-23); CALCIUM, SERUM 8.1 MG/DL (8.5-10.4); CHLORIDE, SERUM 111 MMOL/L (96-112); CO2 (CARBON DIOXIDE) 20 MMOL/L (24-34); GFR AFRICAN AMERICAN 56 ML/MIN (>=60); GFR NON AFRICAN AMERICAN 48 ML/MIN (>=60); GLUCOSE, SERUM 275 MG/DL (60-99); POTASSIUM, SERUM 4.3 MMOL/L (3.5-5.3); SGOT(AST) 59 U/L (5-40); SGPT(ALT) 58 U/L (5-65); SODIUM, SERUM 142 MMOL/L (135-148); TOTAL BILIRUBIN 0.5 MG/DL (0-1.2)
[2017-04-13 05:27] LABS: A/G RATIO 0.5 (0.7-1.9); ALBUMIN 1.7 G/DL (3.5-5.0); ALKALINE PHOSPHATASE 213 U/L (45-117); GLOBULIN 3.6 G/DL (2.5-4.1); TOTAL PROTEIN 5.3 G/DL (6.0-8.5)
[2017-04-13 06:56] LABS: BAND NEUTROPHILS 37 %; BURR CELLS 1+ (3-10/OIF) (0-2/OIF); LYMPHOCYTES 2 %; LYMPHOCYTES ABSOLUTE (CALC) 0.37 10/3/uL (0.67-4.30); MONOCYTES 3 %; MONOCYTES ABSOLUTE (CALC) 0.56 10/3/uL (0.21-1.20); NEUTROPHILS ABSOLUTE (CALC) 17.77 10/3/uL (2.02-8.40); PLATELET ESTIMATE ADQ (ADEQUATE); SEGMENTED NEUTROPHIL (0) 58 %; TOTAL NUCLEATED CELLS 100
[2017-04-13 06:57] LABS: VACUOLATED NEUTROPHILES FEW
[2017-04-13 11:03] LABS: CPK 556 U/L (0-200); PHOSPHORUS, SERUM 4.2 MG/DL (2.5-4.5)
[2017-04-13 15:23] LABS: A/G RATIO 0.5 (0.7-1.9); ALBUMIN 1.8 G/DL (3.5-5.0); ALKALINE PHOSPHATASE 214 U/L (45-117); BUN (BLOOD UREA NITROGEN) 24 MG/DL (6-23); CALCIUM, SERUM 8.1 MG/DL (8.5-10.4); CHLORIDE, SERUM 112 MMOL/L (96-112); CO2 (CARBON DIOXIDE) 18 MMOL/L (24-34); CREATININE 1.78 MG/DL (0.70-1.30); GFR AFRICAN AMERICAN 49 ML/MIN (>=60); GFR NON AFRICAN AMERICAN 43 ML/MIN (>=60); GLOBULIN 3.7 G/DL (2.5-4.1); GLUCOSE, SERUM 362 MG/DL (60-99); POTASSIUM, SERUM 3.7 MMOL/L (3.5-5.3); SGOT(AST) 57 U/L (5-40); SGPT(ALT) 58 U/L (5-65); SODIUM, SERUM 143 MMOL/L (135-148); TOTAL BILIRUBIN 0.2 MG/DL (0-1.2); TOTAL PROTEIN 5.5 G/DL (6.0-8.5)
[2017-04-13 15:24] LABS: PREALBUMIN 9.2 MG/DL (17.0-43.0)
[2017-04-14 04:01] LABS: HEMATOCRIT 31.5 % (40.0-51.0); HEMOGLOBIN 10.7 g/dL (13.6-17.8); MANUAL DIFF YES %; MEAN CORPUSCULAR HEMOGLOB 29.9 pg (26.0-34.0); MEAN PLATELET VOLUME 9.5 fL (9.2-13.0); PLATELET COUNT 309 10/3/uL (150-400); RBC DISTRIBUTION WIDTH 14.3 % (12.0-16.0); RED CELL COUNT 3.58 10/6/uL (4.7-6.1); WHITE BLOOD CELLS 21.6 10/3/uL (4.5-10.5)
[2017-04-14 04:13] LABS: BUN (BLOOD UREA NITROGEN) 27 MG/DL (6-23); CALCIUM, SERUM 8.4 MG/DL (8.5-10.4); CHLORIDE, SERUM 111 MMOL/L (96-112); CREATININE 1.44 MG/DL (0.70-1.30); GFR AFRICAN AMERICAN 64 ML/MIN (>=60); GFR NON AFRICAN AMERICAN 55 ML/MIN (>=60); GLUCOSE, SERUM 330 MG/DL (60-99); PHOSPHORUS, SERUM 3.6 MG/DL (2.5-4.5); POTASSIUM, SERUM 3.4 MMOL/L (3.5-5.3); SODIUM, SERUM 145 MMOL/L (135-148)
[2017-04-14 04:16] LABS: CO2 (CARBON DIOXIDE) 23 MMOL/L (24-34)
[2017-04-14 04:32] LABS: BE (BASE EXCESS) -2.9 MEQ/L (0 +/- 2.5); CARBOXYHEMOGLOBIN 0.5 % (0-3); HCO3 (ACTUAL BICARBONATE) 20.9 MEQ/L (23-27); HEMOBLOGIN CONTENT 8.6 G/DL (14-18); INSTRUMENT SERIAL # 8083; METHEMOGLOBIN 0.2 % (0-3); MODE CMV; O2 CONTENT 12.1 VOL% (18-24); OPERATOR ID 35190; PCO2 (CO2 TENSION) 32 MMHG (35-45); PO2 (O2 TENSION) 121 MMHG (79-93); SAMPLE Arterial; pH 7.43 (7.37-7.43)
[2017-04-14 04:33] LABS: ALLENS TEST Pos; TIDAL VOLUME 550 ML
[2017-04-14 04:43] LABS: BAND NEUTROPHILS 1 %; LYMPHOCYTES 3 %; LYMPHOCYTES ABSOLUTE (CALC) 0.65 10/3/uL (0.67-4.30); MONOCYTES 1 %; MONOCYTES ABSOLUTE (CALC) 0.22 10/3/uL (0.21-1.20); NEUTROPHILS ABSOLUTE (CALC) 20.74 10/3/uL (2.02-8.40); PLATELET ESTIMATE ADQ (ADEQUATE); RBC MORPHOLOGY NORM (NORMAL); SEGMENTED NEUTROPHIL (0) 95 %; TOTAL NUCLEATED CELLS 100
[2017-04-14 04:51] LABS: PROCALCITONIN 58.18 ng/mL (<0.5)
[2017-04-15 03:49] LABS: BE (BASE EXCESS) -0.1 MEQ/L (0 +/- 2.5); CARBOXYHEMOGLOBIN 0.3 % (0-3); HCO3 (ACTUAL BICARBONATE) 24.6 MEQ/L (23-27); HEMOBLOGIN CONTENT 10.7 G/DL (14-18); INSTRUMENT SERIAL # 8083; METHEMOGLOBIN 0.1 % (0-3); MODE CMV; OPERATOR ID 13415; PCO2 (CO2 TENSION) 41 MMHG (35-45); PO2 (O2 TENSION) 132 MMHG (79-93); SAMPLE Arterial; TIDAL VOLUME 550 ML
[2017-04-15 04:35] LABS: BASOPHILS 0.1 %; BASOPHILS ABSOLUTE 0.01 10/3/uL (0.0-0.16); EOSINOPHILS 0 %; HEMATOCRIT 30.4 % (40.0-51.0); HEMOGLOBIN 10.2 g/dL (13.6-17.8); IMMATURE GRANULOCYTES 0.5 %; IMMATURE GRANULOCYTES ABSOLUTE 0.07 10/3/uL (0.0-0.11); LYMPHOCYTES 6.9 %; LYMPHOCYTES ABSOLUTE 0.98 10/3/uL (0.67-4.30); MEAN CORPUS HGB CONC 33.6 g/dL (32.0-36.0); MEAN CORPUSCULAR HEMOGLOB 29.9 pg (26.0-34.0); MEAN CORPUSCULAR VOLUME 89.1 fL (80-100); MEAN PLATELET VOLUME 9.7 fL (9.2-13.0); MONOCYTES 5.6 %; NEUTROPHILS 86.9 %; NEUTROPHILS ABSOLUTE 12.39 10/3/uL (2.02-8.40); PLATELET COUNT 278 10/3/uL (150-400); RBC DISTRIBUTION WIDTH 14.9 % (12.0-16.0); RED CELL COUNT 3.41 10/6/uL (4.7-6.1); WHITE BLOOD CELLS 14.3 10/3/uL (4.5-10.5)
[2017-04-15 04:37] LABS: MANUAL DIFF NO %
[2017-04-15 04:47] LABS: BUN (BLOOD UREA NITROGEN) 31 MG/DL (6-23); CALCIUM, SERUM 8.6 MG/DL (8.5-10.4); CHLORIDE, SERUM 114 MMOL/L (96-112); CO2 (CARBON DIOXIDE) 26 MMOL/L (24-34); CREATININE 1.15 MG/DL (0.70-1.30); GFR AFRICAN AMERICAN 84 ML/MIN (>=60); GFR NON AFRICAN AMERICAN 72 ML/MIN (>=60); GLUCOSE, SERUM 175 MG/DL (60-99); PHOSPHORUS, SERUM 2.4 MG/DL (2.5-4.5); POTASSIUM, SERUM 3.5 MMOL/L (3.5-5.3); SODIUM, SERUM 148 MMOL/L (135-148)
[2017-04-15 19:52] LABS: BUN (BLOOD UREA NITROGEN) 31 MG/DL (6-23); CALCIUM, SERUM 8.6 MG/DL (8.5-10.4); CHLORIDE, SERUM 109 MMOL/L (96-112); CO2 (CARBON DIOXIDE) 29 MMOL/L (24-34); GFR AFRICAN AMERICAN 88 ML/MIN (>=60); GFR NON AFRICAN AMERICAN 76 ML/MIN (>=60); GLUCOSE, SERUM 154 MG/DL (60-99); PHOSPHORUS, SERUM 2.7 MG/DL (2.5-4.5); SODIUM, SERUM 146 MMOL/L (135-148); VANCOMYCIN TROUGH 17.5 MCG/ML (10.0-20.0)
[2017-04-15 19:55] LABS: POTASSIUM, SERUM 4.7 MMOL/L (3.5-5.3)
[2017-04-16 04:33] LABS: ALBUMIN 2.3 G/DL (3.5-5.0); BUN (BLOOD UREA NITROGEN) 33 MG/DL (6-23); CALCIUM, SERUM 9.4 MG/DL (8.5-10.4); CHLORIDE, SERUM 104 MMOL/L (96-112); CO2 (CARBON DIOXIDE) 32 MMOL/L (24-34); CREATININE 1.05 MG/DL (0.70-1.30); GFR AFRICAN AMERICAN 93 ML/MIN (>=60); GFR NON AFRICAN AMERICAN 81 ML/MIN (>=60); PHOSPHORUS, SERUM 2.8 MG/DL (2.5-4.5); POTASSIUM, SERUM 3.9 MMOL/L (3.5-5.3); SODIUM, SERUM 147 MMOL/L (135-148)
[2017-04-16 04:36] LABS: GLUCOSE, SERUM 82 MG/DL (60-99)
[2017-04-16 04:51] LABS: BASOPHILS 0.2 %; BASOPHILS ABSOLUTE 0.02 10/3/uL (0.0-0.16); EOSINOPHILS 0.4 %; EOSINOPHILS ABSOLUTE 0.04 10/3/uL (0.0-0.53); HEMOGLOBIN 11.9 g/dL (13.6-17.8); IMMATURE GRANULOCYTES 0.8 %; IMMATURE GRANULOCYTES ABSOLUTE 0.08 10/3/uL (0.0-0.11); LYMPHOCYTES ABSOLUTE 2.33 10/3/uL (0.67-4.30); MEAN CORPUS HGB CONC 32.6 g/dL (32.0-36.0); MEAN CORPUSCULAR HEMOGLOB 29.6 pg (26.0-34.0); MEAN CORPUSCULAR VOLUME 90.8 fL (80-100); MEAN PLATELET VOLUME 9.5 fL (9.2-13.0); MONOCYTES 8.6 %; MONOCYTES ABSOLUTE 0.83 10/3/uL (0.21-1.20); PLATELET COUNT 340 10/3/uL (150-400); RBC DISTRIBUTION WIDTH 14.9 % (12.0-16.0); RED CELL COUNT 4.02 10/6/uL (4.7-6.1); WHITE BLOOD CELLS 9.7 10/3/uL (4.5-10.5)
[2017-04-16 04:52] LABS: HEMATOCRIT 36.5 % (40.0-51.0); MANUAL DIFF NO %
[2017-04-16 06:20] LABS: PROCALCITONIN 22.94 ng/mL (<0.5)
[2017-04-17 03:47] LABS: BASOPHILS 0.3 %; BASOPHILS ABSOLUTE 0.03 10/3/uL (0.0-0.16); EOSINOPHILS 1.1 %; EOSINOPHILS ABSOLUTE 0.13 10/3/uL (0.0-0.53); IMMATURE GRANULOCYTES ABSOLUTE 0.12 10/3/uL (0.0-0.11); LYMPHOCYTES 27.6 %; LYMPHOCYTES ABSOLUTE 3.31 10/3/uL (0.67-4.30); MEAN CORPUSCULAR HEMOGLOB 30.7 pg (26.0-34.0); MEAN PLATELET VOLUME 9.6 fL (9.2-13.0); MONOCYTES 7.8 %; MONOCYTES ABSOLUTE 0.94 10/3/uL (0.21-1.20); NEUTROPHILS 62.2 %; NEUTROPHILS ABSOLUTE 7.47 10/3/uL (2.02-8.40); PLATELET COUNT 318 10/3/uL (150-400); RBC DISTRIBUTION WIDTH 14.9 % (12.0-16.0); RED CELL COUNT 4.56 10/6/uL (4.7-6.1)
[2017-04-17 03:49] LABS: HEMATOCRIT 42.4 % (40.0-51.0); MANUAL DIFF NO %
[2017-04-17 04:08] LABS: ALBUMIN 2.3 G/DL (3.5-5.0); BUN (BLOOD UREA NITROGEN) 35 MG/DL (6-23); CALCIUM, SERUM 9.9 MG/DL (8.5-10.4); CHLORIDE, SERUM 107 MMOL/L (96-112); CO2 (CARBON DIOXIDE) 31 MMOL/L (24-34); CREATININE 1.03 MG/DL (0.70-1.30); GFR AFRICAN AMERICAN 96 ML/MIN (>=60); GFR NON AFRICAN AMERICAN 83 ML/MIN (>=60); GLUCOSE, SERUM 85 MG/DL (60-99); SODIUM, SERUM 145 MMOL/L (135-148)
[2017-04-17 04:18] LABS: PHOSPHORUS, SERUM 4.3 MG/DL (2.5-4.5)
[2017-04-17 04:20] LABS: POTASSIUM, SERUM 5.1 MMOL/L (3.5-5.3)
[2017-04-18 03:48] LABS: BASOPHILS 0.1 %; BASOPHILS ABSOLUTE 0.01 10/3/uL (0.0-0.16); EOSINOPHILS 1.5 %; EOSINOPHILS ABSOLUTE 0.16 10/3/uL (0.0-0.53); HEMOGLOBIN 12.1 g/dL (13.6-17.8); IMMATURE GRANULOCYTES 1.5 %; IMMATURE GRANULOCYTES ABSOLUTE 0.16 10/3/uL (0.0-0.11); LYMPHOCYTES 27.9 %; LYMPHOCYTES ABSOLUTE 2.92 10/3/uL (0.67-4.30); MEAN CORPUSCULAR HEMOGLOB 30.1 pg (26.0-34.0); MEAN CORPUSCULAR VOLUME 91.3 fL (80-100); MEAN PLATELET VOLUME 9.6 fL (9.2-13.0); MONOCYTES 5.1 %; MONOCYTES ABSOLUTE 0.53 10/3/uL (0.21-1.20); NEUTROPHILS 63.9 %; NEUTROPHILS ABSOLUTE 6.68 10/3/uL (2.02-8.40); PLATELET COUNT 365 10/3/uL (150-400); RBC DISTRIBUTION WIDTH 14.6 % (12.0-16.0); RED CELL COUNT 4.02 10/6/uL (4.7-6.1); WHITE BLOOD CELLS 10.5 10/3/uL (4.5-10.5)
[2017-04-18 03:50] LABS: HEMATOCRIT 36.7 % (40.0-51.0)
[2017-04-18 03:51] LABS: MANUAL DIFF NO %
[2017-04-18 04:01] LABS: BUN (BLOOD UREA NITROGEN) 36 MG/DL (6-23); CHLORIDE, SERUM 105 MMOL/L (96-112); CO2 (CARBON DIOXIDE) 33 MMOL/L (24-34); CREATININE 1.02 MG/DL (0.70-1.30); GFR AFRICAN AMERICAN 97 ML/MIN (>=60); GFR NON AFRICAN AMERICAN 84 ML/MIN (>=60); POTASSIUM, SERUM 4.4 MMOL/L (3.5-5.3); SODIUM, SERUM 143 MMOL/L (135-148)
[2017-04-18 04:05] LABS: GLUCOSE, SERUM 169 MG/DL (60-99)
[2017-04-19 04:10] LABS: BASOPHILS 0.1 %; BASOPHILS ABSOLUTE 0.01 10/3/uL (0.0-0.16); EOSINOPHILS 2.6 %; EOSINOPHILS ABSOLUTE 0.22 10/3/uL (0.0-0.53); HEMATOCRIT 36.1 % (40.0-51.0); HEMOGLOBIN 11.6 g/dL (13.6-17.8); IMMATURE GRANULOCYTES 1.4 %; IMMATURE GRANULOCYTES ABSOLUTE 0.12 10/3/uL (0.0-0.11); LYMPHOCYTES 32.2 %; LYMPHOCYTES ABSOLUTE 2.69 10/3/uL (0.67-4.30); MEAN CORPUS HGB CONC 32.1 g/dL (32.0-36.0); MEAN CORPUSCULAR HEMOGLOB 29.9 pg (26.0-34.0); MEAN PLATELET VOLUME 9.5 fL (9.2-13.0); MONOCYTES 6.9 %; MONOCYTES ABSOLUTE 0.58 10/3/uL (0.21-1.20); NEUTROPHILS 56.8 %; NEUTROPHILS ABSOLUTE 4.74 10/3/uL (2.02-8.40); PLATELET COUNT 377 10/3/uL (150-400); RBC DISTRIBUTION WIDTH 14.3 % (12.0-16.0); RED CELL COUNT 3.88 10/6/uL (4.7-6.1); WHITE BLOOD CELLS 8.4 10/3/uL (4.5-10.5)
[2017-04-19 04:11] LABS: MANUAL DIFF NO %
[2017-04-19 04:22] LABS: BUN (BLOOD UREA NITROGEN) 38 MG/DL (6-23); CHLORIDE, SERUM 105 MMOL/L (96-112); CO2 (CARBON DIOXIDE) 34 MMOL/L (24-34); CREATININE 1.06 MG/DL (0.70-1.30); GFR AFRICAN AMERICAN 92 ML/MIN (>=60); GFR NON AFRICAN AMERICAN 80 ML/MIN (>=60); GLUCOSE, SERUM 144 MG/DL (60-99); POTASSIUM, SERUM 4.3 MMOL/L (3.5-5.3); SODIUM, SERUM 143 MMOL/L (135-148)
[2017-04-20 05:22] LABS: BASOPHILS 0.1 %; BASOPHILS ABSOLUTE 0.01 10/3/uL (0.0-0.16); EOSINOPHILS 1.7 %; EOSINOPHILS ABSOLUTE 0.16 10/3/uL (0.0-0.53); HEMATOCRIT 36.6 % (40.0-51.0); HEMOGLOBIN 11.8 g/dL (13.6-17.8); IMMATURE GRANULOCYTES 0.7 %; IMMATURE GRANULOCYTES ABSOLUTE 0.07 10/3/uL (0.0-0.11); LYMPHOCYTES 24.5 %; LYMPHOCYTES ABSOLUTE 2.35 10/3/uL (0.67-4.30); MEAN CORPUS HGB CONC 32.2 g/dL (32.0-36.0); MEAN CORPUSCULAR HEMOGLOB 30.3 pg (26.0-34.0); MEAN CORPUSCULAR VOLUME 94.1 fL (80-100); MEAN PLATELET VOLUME 9.5 fL (9.2-13.0); MONOCYTES 7.5 %; MONOCYTES ABSOLUTE 0.72 10/3/uL (0.21-1.20); NEUTROPHILS 65.5 %; NEUTROPHILS ABSOLUTE 6.29 10/3/uL (2.02-8.40); PLATELET COUNT 391 10/3/uL (150-400); RBC DISTRIBUTION WIDTH 14.3 % (12.0-16.0); RED CELL COUNT 3.89 10/6/uL (4.7-6.1); WHITE BLOOD CELLS 9.6 10/3/uL (4.5-10.5)
[2017-04-20 05:23] LABS: MANUAL DIFF NO %
[2017-04-20 05:35] LABS: BUN (BLOOD UREA NITROGEN) 37 MG/DL (6-23); CALCIUM, SERUM 10.3 MG/DL (8.5-10.4); CHLORIDE, SERUM 107 MMOL/L (96-112); CO2 (CARBON DIOXIDE) 32 MMOL/L (24-34); CREATININE 1.26 MG/DL (0.70-1.30); GFR AFRICAN AMERICAN 75 ML/MIN (>=60); GFR NON AFRICAN AMERICAN 65 ML/MIN (>=60); GLUCOSE, SERUM 151 MG/DL (60-99); POTASSIUM, SERUM 4.4 MMOL/L (3.5-5.3); SODIUM, SERUM 145 MMOL/L (135-148)
[2017-04-20 06:02] LABS: PROCALCITONIN 2.06 ng/mL (<0.5)
[2017-04-21 07:08] LABS: BASOPHILS 0.1 %; BASOPHILS ABSOLUTE 0.01 10/3/uL (0.0-0.16); EOSINOPHILS 1.4 %; EOSINOPHILS ABSOLUTE 0.15 10/3/uL (0.0-0.53); HEMATOCRIT 35.5 % (40.0-51.0); HEMOGLOBIN 11.4 g/dL (13.6-17.8); IMMATURE GRANULOCYTES 0.5 %; IMMATURE GRANULOCYTES ABSOLUTE 0.05 10/3/uL (0.0-0.11); LYMPHOCYTES 23.2 %; LYMPHOCYTES ABSOLUTE 2.51 10/3/uL (0.67-4.30); MANUAL DIFF NO %; MEAN CORPUS HGB CONC 32.1 g/dL (32.0-36.0); MEAN CORPUSCULAR HEMOGLOB 29.9 pg (26.0-34.0); MEAN CORPUSCULAR VOLUME 93.2 fL (80-100); MEAN PLATELET VOLUME 9.1 fL (9.2-13.0); MONOCYTES 5.8 %; MONOCYTES ABSOLUTE 0.63 10/3/uL (0.21-1.20); NEUTROPHILS ABSOLUTE 7.49 10/3/uL (2.02-8.40); PLATELET COUNT 388 10/3/uL (150-400); RBC DISTRIBUTION WIDTH 14.2 % (12.0-16.0); RED CELL COUNT 3.81 10/6/uL (4.7-6.1); WHITE BLOOD CELLS 10.8 10/3/uL (4.5-10.5)
[2017-04-21 07:19] LABS: CALCIUM, SERUM 10.3 MG/DL (8.5-10.4); CHLORIDE, SERUM 108 MMOL/L (96-112); CO2 (CARBON DIOXIDE) 33 MMOL/L (24-34); CREATININE 1.34 MG/DL (0.70-1.30); GFR AFRICAN AMERICAN 70 ML/MIN (>=60); GFR NON AFRICAN AMERICAN 60 ML/MIN (>=60); POTASSIUM, SERUM 4.2 MMOL/L (3.5-5.3); SODIUM, SERUM 147 MMOL/L (135-148)
[2017-04-21 07:20] LABS: BUN (BLOOD UREA NITROGEN) 41 MG/DL (6-23); GLUCOSE, SERUM 113 MG/DL (60-99)
[2017-04-23 11:17] LABS: BASOPHILS 0.2 %; BASOPHILS ABSOLUTE 0.02 10/3/uL (0.0-0.16); EOSINOPHILS 1.6 %; EOSINOPHILS ABSOLUTE 0.14 10/3/uL (0.0-0.53); HEMATOCRIT 37.8 % (40.0-51.0); IMMATURE GRANULOCYTES 0.4 %; IMMATURE GRANULOCYTES ABSOLUTE 0.04 10/3/uL (0.0-0.11); LYMPHOCYTES ABSOLUTE 2.33 10/3/uL (0.67-4.30); MEAN CORPUS HGB CONC 31.7 g/dL (32.0-36.0); MEAN CORPUSCULAR HEMOGLOB 30.3 pg (26.0-34.0); MEAN CORPUSCULAR VOLUME 95.5 fL (80-100); MEAN PLATELET VOLUME 9.4 fL (9.2-13.0); MONOCYTES 7.5 %; MONOCYTES ABSOLUTE 0.67 10/3/uL (0.21-1.20); NEUTROPHILS 64.3 %; NEUTROPHILS ABSOLUTE 5.76 10/3/uL (2.02-8.40); PLATELET COUNT 432 10/3/uL (150-400); RBC DISTRIBUTION WIDTH 14.2 % (12.0-16.0); RED CELL COUNT 3.96 10/6/uL (4.7-6.1)
[2017-04-23 11:18] LABS: MANUAL DIFF NO %
[2017-04-23 11:27] LABS: BUN (BLOOD UREA NITROGEN) 40 MG/DL (6-23); CALCIUM, SERUM 10.5 MG/DL (8.5-10.4); CHLORIDE, SERUM 114 MMOL/L (96-112); CO2 (CARBON DIOXIDE) 28 MMOL/L (24-34); CREATININE 1.42 MG/DL (0.70-1.30); GFR AFRICAN AMERICAN 65 ML/MIN (>=60); GFR NON AFRICAN AMERICAN 56 ML/MIN (>=60); GLUCOSE, SERUM 118 MG/DL (60-99); PHOSPHORUS, SERUM 3.4 MG/DL (2.5-4.5); POTASSIUM, SERUM 3.9 MMOL/L (3.5-5.3); SODIUM, SERUM 141 MMOL/L (135-148)
[2017-04-24 04:30] LABS: BASOPHILS 0.2 %; BASOPHILS ABSOLUTE 0.02 10/3/uL (0.0-0.16); EOSINOPHILS 1.1 %; EOSINOPHILS ABSOLUTE 0.11 10/3/uL (0.0-0.53); HEMATOCRIT 39.2 % (40.0-51.0); HEMOGLOBIN 12.4 g/dL (13.6-17.8); IMMATURE GRANULOCYTES 0.3 %; IMMATURE GRANULOCYTES ABSOLUTE 0.03 10/3/uL (0.0-0.11); LYMPHOCYTES ABSOLUTE 2.59 10/3/uL (0.67-4.30); MANUAL DIFF NO %; MEAN CORPUS HGB CONC 31.6 g/dL (32.0-36.0); MEAN CORPUSCULAR HEMOGLOB 30.4 pg (26.0-34.0); MEAN CORPUSCULAR VOLUME 96.1 fL (80-100); MEAN PLATELET VOLUME 9.3 fL (9.2-13.0); MONOCYTES 6.6 %; MONOCYTES ABSOLUTE 0.69 10/3/uL (0.21-1.20); NEUTROPHILS 66.8 %; NEUTROPHILS ABSOLUTE 6.94 10/3/uL (2.02-8.40); PLATELET COUNT 434 10/3/uL (150-400); RBC DISTRIBUTION WIDTH 14.4 % (12.0-16.0); RED CELL COUNT 4.08 10/6/uL (4.7-6.1); WHITE BLOOD CELLS 10.4 10/3/uL (4.5-10.5)
[2017-04-24 04:48] LABS: CALCIUM, SERUM 9.9 MG/DL (8.5-10.4); CHLORIDE, SERUM 112 MMOL/L (96-112); CO2 (CARBON DIOXIDE) 29 MMOL/L (24-34); CREATININE 1.46 MG/DL (0.70-1.30); GFR AFRICAN AMERICAN 63 ML/MIN (>=60); GFR NON AFRICAN AMERICAN 54 ML/MIN (>=60); GLUCOSE, SERUM 121 MG/DL (60-99); PHOSPHORUS, SERUM 3.3 MG/DL (2.5-4.5); POTASSIUM, SERUM 4.1 MMOL/L (3.5-5.3)
[2017-04-24 04:52] LABS: BUN (BLOOD UREA NITROGEN) 47 MG/DL (6-23); SODIUM, SERUM 148 MMOL/L (135-148)
[2017-04-24 17:00] LABS: ASCORBIC ACID (UR NOT ORDER) 40 (NEG); BILIRUBIN, URINE NEGATIVE (NEG); KETONE, URINE NEGATIVE (NEG); LEUKOCYTE ESTERASE(NOT OR NEG (NEG); WBC (NOT ORDERED) (RFLEX) 3 (0-5)
[2017-04-25 04:33] LABS: BASOPHILS 0.2 %; BASOPHILS ABSOLUTE 0.03 10/3/uL (0.0-0.16); EOSINOPHILS 0.7 %; EOSINOPHILS ABSOLUTE 0.09 10/3/uL (0.0-0.53); HEMATOCRIT 40.2 % (40.0-51.0); HEMOGLOBIN 12.5 g/dL (13.6-17.8); IMMATURE GRANULOCYTES 0.6 %; IMMATURE GRANULOCYTES ABSOLUTE 0.08 10/3/uL (0.0-0.11); LYMPHOCYTES 17.6 %; MANUAL DIFF NO %; MEAN CORPUS HGB CONC 31.1 g/dL (32.0-36.0); MEAN CORPUSCULAR HEMOGLOB 29.8 pg (26.0-34.0); MEAN CORPUSCULAR VOLUME 95.7 fL (80-100); MEAN PLATELET VOLUME 9.2 fL (9.2-13.0); MONOCYTES 8.3 %; MONOCYTES ABSOLUTE 1.03 10/3/uL (0.21-1.20); NEUTROPHILS 72.6 %; NEUTROPHILS ABSOLUTE 9.05 10/3/uL (2.02-8.40); PLATELET COUNT 401 10/3/uL (150-400); RBC DISTRIBUTION WIDTH 14.4 % (12.0-16.0); WHITE BLOOD CELLS 12.5 10/3/uL (4.5-10.5)
[2017-04-25 04:51] LABS: CALCIUM, SERUM 9.9 MG/DL (8.5-10.4); CHLORIDE, SERUM 115 MMOL/L (96-112); CO2 (CARBON DIOXIDE) 25 MMOL/L (24-34); GFR AFRICAN AMERICAN 66 ML/MIN (>=60); GFR NON AFRICAN AMERICAN 57 ML/MIN (>=60); SODIUM, SERUM 148 MMOL/L (135-148)
[2017-04-25 04:52] LABS: BUN (BLOOD UREA NITROGEN) 52 MG/DL (6-23); GLUCOSE, SERUM 150 MG/DL (60-99)
[2017-04-25 10:32] LABS: ALLENS TEST Pos; BE (BASE EXCESS) -0.3 MEQ/L (0 +/- 2.5); BIPAP 25 cm.H2O; CARBOXYHEMOGLOBIN 0.3 % (0-3); HCO3 (ACTUAL BICARBONATE) 25.8 MEQ/L (23-27); HEMOBLOGIN CONTENT 13.7 G/DL (14-18); INSTRUMENT SERIAL # 35151; METHEMOGLOBIN 0.5 % (0-3); MODE PCV; O2 CONTENT 19.1 VOL% (18-24); PCO2 (CO2 TENSION) 48 MMHG (35-45); PO2 (O2 TENSION) 144 MMHG (79-93); SAMPLE Arterial; pH 7.35 (7.37-7.43)
[2017-04-26 03:43] LABS: ALLENS TEST Pos; BE (BASE EXCESS) 1.6 MEQ/L (0 +/- 2.5); CARBOXYHEMOGLOBIN 0.1 % (0-3); HCO3 (ACTUAL BICARBONATE) 26.9 MEQ/L (23-27); HEMOBLOGIN CONTENT 13.1 G/DL (14-18); INSTRUMENT SERIAL # 35151; METHEMOGLOBIN 0.4 % (0-3); MODE CMV; O2 CONTENT 17.9 VOL% (18-24); OPERATOR ID 17370; PCO2 (CO2 TENSION) 45 MMHG (35-45); PO2 (O2 TENSION) 97 MMHG (79-93); SAMPLE Arterial; TIDAL VOLUME 450 ML
[2017-04-26 04:12] LABS: BASOPHILS 0.1 %; BASOPHILS ABSOLUTE 0.02 10/3/uL (0.0-0.16); EOSINOPHILS 0.1 %; EOSINOPHILS ABSOLUTE 0.01 10/3/uL (0.0-0.53); HEMATOCRIT 40.9 % (40.0-51.0); IMMATURE GRANULOCYTES 0.4 %; IMMATURE GRANULOCYTES ABSOLUTE 0.06 10/3/uL (0.0-0.11); LYMPHOCYTES 20.7 %; LYMPHOCYTES ABSOLUTE 2.79 10/3/uL (0.67-4.30); MANUAL DIFF NO %; MEAN CORPUS HGB CONC 31.8 g/dL (32.0-36.0); MEAN CORPUSCULAR HEMOGLOB 30.1 pg (26.0-34.0); MEAN CORPUSCULAR VOLUME 94.7 fL (80-100); MEAN PLATELET VOLUME 9.6 fL (9.2-13.0); MONOCYTES 6.5 %; MONOCYTES ABSOLUTE 0.88 10/3/uL (0.21-1.20); NEUTROPHILS 72.2 %; PLATELET COUNT 444 10/3/uL (150-400); RBC DISTRIBUTION WIDTH 14.4 % (12.0-16.0); RED CELL COUNT 4.32 10/6/uL (4.7-6.1); WHITE BLOOD CELLS 13.5 10/3/uL (4.5-10.5)
[2017-04-26 04:30] LABS: BUN (BLOOD UREA NITROGEN) 50 MG/DL (6-23); CALCIUM, SERUM 10.4 MG/DL (8.5-10.4); CHLORIDE, SERUM 114 MMOL/L (96-112); CO2 (CARBON DIOXIDE) 27 MMOL/L (24-34); CREATININE 1.35 MG/DL (0.70-1.30); GFR AFRICAN AMERICAN 69 ML/MIN (>=60); GFR NON AFRICAN AMERICAN 60 ML/MIN (>=60); GLUCOSE, SERUM 160 MG/DL (60-99); POTASSIUM, SERUM 4.4 MMOL/L (3.5-5.3); SODIUM, SERUM 148 MMOL/L (135-148)
[2017-04-26 04:32] LABS: PHOSPHORUS, SERUM 3.7 MG/DL (2.5-4.5)
[2017-04-27 03:22] LABS: BE (BASE EXCESS) 4.1 MEQ/L (0 +/- 2.5); HCO3 (ACTUAL BICARBONATE) 28.7 MEQ/L (23-27); INSTRUMENT SERIAL # 35151; PCO2 (CO2 TENSION) 43 MMHG (35-45); PO2 (O2 TENSION) 160 MMHG (79-93); pH 7.45 (7.37-7.43)
[2017-04-27 03:23] LABS: ALLENS TEST Pos; CARBOXYHEMOGLOBIN 0.1 % (0-3); HEMOBLOGIN CONTENT 12.5 G/DL (14-18); METHEMOGLOBIN 0.5 % (0-3); O2 CONTENT 17.6 VOL% (18-24); OPERATOR ID 33449; SAMPLE Arterial; TIDAL VOLUME 450 ML
[2017-04-27 04:16] LABS: BASOPHILS 0.2 %; BASOPHILS ABSOLUTE 0.03 10/3/uL (0.0-0.16); EOSINOPHILS 1.2 %; EOSINOPHILS ABSOLUTE 0.15 10/3/uL (0.0-0.53); HEMOGLOBIN 11.6 g/dL (13.6-17.8); IMMATURE GRANULOCYTES 0.5 %; IMMATURE GRANULOCYTES ABSOLUTE 0.06 10/3/uL (0.0-0.11); LYMPHOCYTES 23.7 %; LYMPHOCYTES ABSOLUTE 2.95 10/3/uL (0.67-4.30); MEAN CORPUS HGB CONC 31.9 g/dL (32.0-36.0); MEAN CORPUSCULAR HEMOGLOB 30.4 pg (26.0-34.0); MEAN CORPUSCULAR VOLUME 95.5 fL (80-100); MEAN PLATELET VOLUME 9.5 fL (9.2-13.0); MONOCYTES 6.2 %; MONOCYTES ABSOLUTE 0.77 10/3/uL (0.21-1.20); NEUTROPHILS 68.2 %; NEUTROPHILS ABSOLUTE 8.47 10/3/uL (2.02-8.40); PLATELET COUNT 375 10/3/uL (150-400); RBC DISTRIBUTION WIDTH 14.5 % (12.0-16.0); RED CELL COUNT 3.81 10/6/uL (4.7-6.1); WHITE BLOOD CELLS 12.4 10/3/uL (4.5-10.5)
[2017-04-27 04:17] LABS: HEMATOCRIT 36.4 % (40.0-51.0); MANUAL DIFF NO %
[2017-04-27 04:30] LABS: ALBUMIN 3.1 G/DL (3.5-5.0); BUN (BLOOD UREA NITROGEN) 51 MG/DL (6-23); CALCIUM, SERUM 10.3 MG/DL (8.5-10.4); CHLORIDE, SERUM 114 MMOL/L (96-112); CO2 (CARBON DIOXIDE) 30 MMOL/L (24-34); GFR AFRICAN AMERICAN 66 ML/MIN (>=60); GFR NON AFRICAN AMERICAN 57 ML/MIN (>=60); PHOSPHORUS, SERUM 2.9 MG/DL (2.5-4.5); POTASSIUM, SERUM 3.7 MMOL/L (3.5-5.3); SODIUM, SERUM 151 MMOL/L (135-148)
[2017-04-27 04:36] LABS: GLUCOSE, SERUM 92 MG/DL (60-99)
[2017-04-28 03:23] LABS: BASOPHILS 0.3 %; BASOPHILS ABSOLUTE 0.03 10/3/uL (0.0-0.16); EOSINOPHILS 2.1 %; EOSINOPHILS ABSOLUTE 0.23 10/3/uL (0.0-0.53); HEMATOCRIT 34.2 % (40.0-51.0); HEMOGLOBIN 10.7 g/dL (13.6-17.8); IMMATURE GRANULOCYTES 1.1 %; IMMATURE GRANULOCYTES ABSOLUTE 0.12 10/3/uL (0.0-0.11); LYMPHOCYTES 25.2 %; LYMPHOCYTES ABSOLUTE 2.79 10/3/uL (0.67-4.30); MEAN CORPUS HGB CONC 31.3 g/dL (32.0-36.0); MEAN CORPUSCULAR HEMOGLOB 29.7 pg (26.0-34.0); MEAN PLATELET VOLUME 9.3 fL (9.2-13.0); MONOCYTES ABSOLUTE 0.55 10/3/uL (0.21-1.20); NEUTROPHILS 66.3 %; NEUTROPHILS ABSOLUTE 7.36 10/3/uL (2.02-8.40); PLATELET COUNT 326 10/3/uL (150-400); RBC DISTRIBUTION WIDTH 14.1 % (12.0-16.0); WHITE BLOOD CELLS 11.1 10/3/uL (4.5-10.5)
[2017-04-28 03:24] LABS: MANUAL DIFF NO %
[2017-04-28 03:41] LABS: ALBUMIN 2.7 G/DL (3.5-5.0); CALCIUM, SERUM 9.8 MG/DL (8.5-10.4); CHLORIDE, SERUM 112 MMOL/L (96-112); CO2 (CARBON DIOXIDE) 30 MMOL/L (24-34); CREATININE 1.07 MG/DL (0.70-1.30); GFR AFRICAN AMERICAN 91 ML/MIN (>=60); GFR NON AFRICAN AMERICAN 79 ML/MIN (>=60); PHOSPHORUS, SERUM 2.7 MG/DL (2.5-4.5); POTASSIUM, SERUM 3.8 MMOL/L (3.5-5.3); SODIUM, SERUM 148 MMOL/L (135-148)
[2017-04-28 03:43] LABS: ALLENS TEST Pos; BE (BASE EXCESS) 1.4 MEQ/L (0 +/- 2.5); CARBOXYHEMOGLOBIN 0.1 % (0-3); HCO3 (ACTUAL BICARBONATE) 25.6 MEQ/L (23-27); HEMOBLOGIN CONTENT 11.5 G/DL (14-18); INSTRUMENT SERIAL # 35151; METHEMOGLOBIN 0.5 % (0-3); MODE CMV; O2 CONTENT 15.8 VOL% (18-24); OPERATOR ID 23712; PCO2 (CO2 TENSION) 39 MMHG (35-45); PO2 (O2 TENSION) 100 MMHG (79-93); SAMPLE Arterial; TIDAL VOLUME 450 ML; pH 7.44 (7.37-7.43)
[2017-04-28 03:49] LABS: BUN (BLOOD UREA NITROGEN) 41 MG/DL (6-23); GLUCOSE, SERUM 159 MG/DL (60-99)
[2017-04-29 03:55] LABS: BASOPHILS 0.3 %; BASOPHILS ABSOLUTE 0.04 10/3/uL (0.0-0.16); EOSINOPHILS 2.5 %; EOSINOPHILS ABSOLUTE 0.32 10/3/uL (0.0-0.53); HEMATOCRIT 37.4 % (40.0-51.0); HEMOGLOBIN 12.1 g/dL (13.6-17.8); IMMATURE GRANULOCYTES 1.5 %; IMMATURE GRANULOCYTES ABSOLUTE 0.19 10/3/uL (0.0-0.11); LYMPHOCYTES 17.5 %; LYMPHOCYTES ABSOLUTE 2.26 10/3/uL (0.67-4.30); MEAN CORPUS HGB CONC 32.4 g/dL (32.0-36.0); MEAN CORPUSCULAR HEMOGLOB 30.2 pg (26.0-34.0); MEAN CORPUSCULAR VOLUME 93.3 fL (80-100); MEAN PLATELET VOLUME 9.4 fL (9.2-13.0); MONOCYTES 4.8 %; MONOCYTES ABSOLUTE 0.62 10/3/uL (0.21-1.20); NEUTROPHILS 73.4 %; NEUTROPHILS ABSOLUTE 9.47 10/3/uL (2.02-8.40); PLATELET COUNT 334 10/3/uL (150-400); RBC DISTRIBUTION WIDTH 13.8 % (12.0-16.0); RED CELL COUNT 4.01 10/6/uL (4.7-6.1); WHITE BLOOD CELLS 12.9 10/3/uL (4.5-10.5)
[2017-04-29 03:56] LABS: MANUAL DIFF NO %
[2017-04-29 04:11] LABS: ALBUMIN 2.9 G/DL (3.5-5.0); BUN (BLOOD UREA NITROGEN) 36 MG/DL (6-23); CALCIUM, SERUM 9.8 MG/DL (8.5-10.4); CHLORIDE, SERUM 104 MMOL/L (96-112); CO2 (CARBON DIOXIDE) 30 MMOL/L (24-34); CREATININE 0.99 MG/DL (0.70-1.30); GFR AFRICAN AMERICAN 100 ML/MIN (>=60); GFR NON AFRICAN AMERICAN 87 ML/MIN (>=60); GLUCOSE, SERUM 144 MG/DL (60-99); PHOSPHORUS, SERUM 3.1 MG/DL (2.5-4.5); POTASSIUM, SERUM 3.8 MMOL/L (3.5-5.3); SODIUM, SERUM 143 MMOL/L (135-148)
[2017-04-30 10:59] LABS: HEMATOCRIT 36.7 % (40.0-51.0); HEMOGLOBIN 12.1 g/dL (13.6-17.8); MEAN CORPUSCULAR HEMOGLOB 29.7 pg (26.0-34.0); MEAN PLATELET VOLUME 9.6 fL (9.2-13.0); PLATELET COUNT 301 10/3/uL (150-400); RBC DISTRIBUTION WIDTH 13.9 % (12.0-16.0); RED CELL COUNT 4.07 10/6/uL (4.7-6.1)
[2017-04-30 11:00] LABS: MEAN CORPUSCULAR VOLUME 90.2 fL (80-100); WHITE BLOOD CELLS 27.6 10/3/uL (4.5-10.5)
[2017-04-30 11:01] LABS: MANUAL DIFF YES %
[2017-04-30 11:15] LABS: BUN (BLOOD UREA NITROGEN) 34 MG/DL (6-23); CALCIUM, SERUM 9.2 MG/DL (8.5-10.4); CHLORIDE, SERUM 105 MMOL/L (96-112); CO2 (CARBON DIOXIDE) 22 MMOL/L (24-34); CREATININE 1.17 MG/DL (0.70-1.30); GFR AFRICAN AMERICAN 82 ML/MIN (>=60); GFR NON AFRICAN AMERICAN 71 ML/MIN (>=60); GLUCOSE, SERUM 187 MG/DL (60-99); POTASSIUM, SERUM 4.3 MMOL/L (3.5-5.3); SODIUM, SERUM 135 MMOL/L (135-148)
[2017-04-30 11:21] LABS: BAND NEUTROPHILS 32 %; LYMPHOCYTES 13 %; LYMPHOCYTES ABSOLUTE (CALC) 3.59 10/3/uL (0.67-4.30); MONOCYTES 6 %; MONOCYTES ABSOLUTE (CALC) 1.66 10/3/uL (0.21-1.20); NEUTROPHILS ABSOLUTE (CALC) 22.36 10/3/uL (2.02-8.40); PLATELET ESTIMATE ADQ (ADEQUATE); POLYCHROMASIA 1+ (2-5/OIF) (0-1/OIF); SEGMENTED NEUTROPHIL (0) 49 %; TOTAL NUCLEATED CELLS 100; TOXIC GRANULATION 1+; VACUOLATED NEUTROPHILES OCC
[2017-04-30 11:22] LABS: MACROCYTES 1+ (5-10/OIF) (0-5/OIF)
[2017-04-30 11:42] LABS: PROCALCITONIN 0.23 ng/mL (<0.5)
[2017-04-30 14:41] LABS: HEMATOCRIT 39.4 % (40.0-51.0); HEMOGLOBIN 13.2 g/dL (13.6-17.8); MEAN CORPUS HGB CONC 33.5 g/dL (32.0-36.0); MEAN CORPUSCULAR HEMOGLOB 30.5 pg (26.0-34.0); MEAN PLATELET VOLUME 9.6 fL (9.2-13.0); PLATELET COUNT 323 10/3/uL (150-400); RBC DISTRIBUTION WIDTH 13.9 % (12.0-16.0); RED CELL COUNT 4.33 10/6/uL (4.7-6.1); WHITE BLOOD CELLS 22.5 10/3/uL (4.5-10.5)
[2017-04-30 14:42] LABS: MANUAL DIFF YES %
[2017-04-30 15:08] LABS: BAND NEUTROPHILS 20 %; LYMPHOCYTES 5 %; LYMPHOCYTES ABSOLUTE (CALC) 1.13 10/3/uL (0.67-4.30); MONOCYTES 4 %; NEUTROPHILS ABSOLUTE (CALC) 20.48 10/3/uL (2.02-8.40); PLATELET ESTIMATE ADQ (ADEQUATE); SEGMENTED NEUTROPHIL (0) 71 %; TOTAL NUCLEATED CELLS 100
[2017-04-30 15:09] LABS: POLYCHROMASIA 1+ (2-5/OIF) (0-1/OIF); TEARDROP SHAPED RBCS OCC (0-2/OIF)
[2017-05-01 03:33] LABS: BE (BASE EXCESS) 0.2 MEQ/L (0 +/- 2.5); INSTRUMENT SERIAL # 8083; PCO2 (CO2 TENSION) 36 MMHG (35-45); PO2 (O2 TENSION) 60 MMHG (79-93); pH 7.44 (7.37-7.43)
[2017-05-01 03:34] LABS: ALLENS TEST Pos; BIPAP 15/5 cm.H2O; CARBOXYHEMOGLOBIN 0.7 % (0-3); HEMOBLOGIN CONTENT 12.1 G/DL (14-18); METHEMOGLOBIN 0.2 % (0-3); O2 CONTENT 15.3 VOL% (18-24); SAMPLE Arterial
[2017-05-01 10:25] LABS: CALCIUM, SERUM 9.1 MG/DL (8.5-10.4); CHLORIDE, SERUM 103 MMOL/L (96-112); CO2 (CARBON DIOXIDE) 18 MMOL/L (24-34); POTASSIUM, SERUM 4.9 MMOL/L (3.5-5.3); SGPT(ALT) 22 U/L (5-65); SODIUM, SERUM 136 MMOL/L (135-148)
[2017-05-01 10:27] LABS: ALKALINE PHOSPHATASE 103 U/L (45-117); BUN (BLOOD UREA NITROGEN) 59 MG/DL (6-23); CREATININE 2.85 MG/DL (0.70-1.30); GFR AFRICAN AMERICAN 28 ML/MIN (>=60); GFR NON AFRICAN AMERICAN 24 ML/MIN (>=60); GLUCOSE, SERUM 125 MG/DL (60-99); TOTAL BILIRUBIN 0.7 MG/DL (0-1.2); TOTAL PROTEIN 7.3 G/DL (6.0-8.5)
[2017-05-01 10:29] LABS: A/G RATIO 0.4 (0.7-1.9); GLOBULIN 5.3 G/DL (2.5-4.1); SGOT(AST) 59 U/L (5-40)
[2017-05-01 11:38] LABS: MEAN CORPUS HGB CONC 32.8 g/dL (32.0-36.0); MEAN CORPUSCULAR HEMOGLOB 29.6 pg (26.0-34.0); MEAN CORPUSCULAR VOLUME 90.2 fL (80-100); MEAN PLATELET VOLUME 9.7 fL (9.2-13.0); PLATELET COUNT 294 10/3/uL (150-400); RBC DISTRIBUTION WIDTH 14.3 % (12.0-16.0)
[2017-05-01 11:47] LABS: HEMATOCRIT 30.5 % (40.0-51.0); RED CELL COUNT 3.38 10/6/uL (4.7-6.1); WHITE BLOOD CELLS 25.6 10/3/uL (4.5-10.5)
[2017-05-01 11:48] LABS: MANUAL DIFF YES %
[2017-05-01 12:08] LABS: BAND NEUTROPHILS 10 %; IMMATURE GRANS ABSOLUTE (CALC) 0.26 10/3/uL (0.0-0.11); LYMPHOCYTES 8 %; LYMPHOCYTES ABSOLUTE (CALC) 2.56 10/3/uL (0.67-4.30); METAMYELOCYTES 1 %; MONOCYTES 2 %; NEUTROPHILS ABSOLUTE (CALC) 22.78 10/3/uL (2.02-8.40); PLATELET ESTIMATE ADQ (ADEQUATE); RBC MORPHOLOGY NORM (NORMAL); SEGMENTED NEUTROPHIL (0) 79 %; TOTAL NUCLEATED CELLS 100
[2017-05-02 10:06] LABS: HEMOGLOBIN 8.9 g/dL (13.6-17.8); MEAN CORPUS HGB CONC 33.6 g/dL (32.0-36.0); MEAN CORPUSCULAR HEMOGLOB 30.8 pg (26.0-34.0); MEAN CORPUSCULAR VOLUME 91.7 fL (80-100); MEAN PLATELET VOLUME 9.6 fL (9.2-13.0); PLATELET COUNT 267 10/3/uL (150-400); RBC DISTRIBUTION WIDTH 14.2 % (12.0-16.0); RED CELL COUNT 2.89 10/6/uL (4.7-6.1); WHITE BLOOD CELLS 19.7 10/3/uL (4.5-10.5)
[2017-05-02 10:08] LABS: HEMATOCRIT 26.5 % (40.0-51.0); MANUAL DIFF YES %
[2017-05-02 10:19] LABS: CALCIUM, SERUM 8.6 MG/DL (8.5-10.4); CHLORIDE, SERUM 111 MMOL/L (96-112); SODIUM, SERUM 141 MMOL/L (135-148)
[2017-05-02 10:20] LABS: BUN (BLOOD UREA NITROGEN) 43 MG/DL (6-23); CO2 (CARBON DIOXIDE) 24 MMOL/L (24-34); CREATININE 1.53 MG/DL (0.70-1.30); GFR AFRICAN AMERICAN 59 ML/MIN (>=60); GFR NON AFRICAN AMERICAN 51 ML/MIN (>=60); GLUCOSE, SERUM 75 MG/DL (60-99)
[2017-05-02 10:32] LABS: BAND NEUTROPHILS 33 %; LYMPHOCYTES 7 %; LYMPHOCYTES ABSOLUTE (CALC) 1.38 10/3/uL (0.67-4.30); MONOCYTES 2 %; MONOCYTES ABSOLUTE (CALC) 0.39 10/3/uL (0.21-1.20); NEUTROPHILS ABSOLUTE (CALC) 17.93 10/3/uL (2.02-8.40); PLATELET ESTIMATE ADQ (ADEQUATE); SEGMENTED NEUTROPHIL (0) 58 %; TOTAL NUCLEATED CELLS 100
[2017-05-02 10:33] LABS: RBC MORPHOLOGY NORM (NORMAL)
== END 2017-05-03 18:09 | disposition hospice, inpatient (51) | DRG 870 ==
LOC: ER 12:43 → MIC 14:08 → 2SO 04-22 18:50 → CCU 04-25 06:35 → 2SO 04-29 11:46
PROVIDERS: Hospitalist; Internal Medicine; Internal Medicine Critical Care Medicine; Internal Medicine Pulmonary Disease; Nurse Practitioner; Student in an Organized Health Care Education/Training Program
PROC: 5A1955Z Respiratory Ventilation, Greater than 96 Consecutive Hours (ICD-10-PCS; principal; 2017-04-12)
PROC: 05H633Z Insertion of Infusion Device into Left Subclavian Vein, Percutaneous Approach (ICD-10-PCS; 2017-04-12)
PROC: 0BH17EZ Insertion of Endotracheal Airway into Trachea, Via Natural or Artificial Opening (ICD-10-PCS; 2017-04-12)
PROC: 0W9930Z Drainage of Right Pleural Cavity with Drainage Device, Percutaneous Approach (ICD-10-PCS; 2017-04-12)
PROC: 0DH63UZ Insertion of Feeding Device into Stomach, Percutaneous Approach (ICD-10-PCS; 2017-04-21)
PROC: 5A09557 Assistance with Respiratory Ventilation, Greater than 96 Consecutive Hours, Continuous Positive Airway Pressure (ICD-10-PCS; 2017-04-23)
DX: A41.9 Sepsis, unspecified organism (principal); J96.21 Acute and chronic respiratory failure with hypoxia; R65.21 Severe sepsis with septic shock; J69.0 Pneumonitis due to inhalation of food and vomit; G93.41 Metabolic encephalopathy; N17.9 Acute kidney failure, unspecified; T17.590A Other foreign object in bronchus causing asphyxiation, initial encounter; C71.9 Malignant neoplasm of brain, unspecified; J93.9 Pneumothorax, unspecified; G40.901 Epilepsy, unspecified, not intractable, with status epilepticus; Z51.5 Encounter for palliative care; E11.65 Type 2 diabetes mellitus with hyperglycemia; Z66 Do not resuscitate; N18.9 Chronic kidney disease, unspecified; K44.9 Diaphragmatic hernia without obstruction or gangrene; E11.22 Type 2 diabetes mellitus with diabetic chronic kidney disease; T36.1X5A Adverse effect of cephalosporins and other beta-lactam antibiotics, initial encounter; Z86.73 Personal history of transient ischemic attack (TIA), and cerebral infarction without residual deficits; Z92.21 Personal history of antineoplastic chemotherapy; Z92.3 Personal history of irradiation; Y92.009 Unspecified place in unspecified non-institutional (private) residence as the place of occurrence of the external cause
CPT/HCPCS: 31500; 31720; 36415; 36600; 70450; 70470; 70553; 71010; 71250; 74000; 76705; 80048; 80053; 80069; 80202; 80305; 81001; 82140; 82150; 82330; 82533; 82550; 82553; 82803; 82805; 82947; 82962; 83036; 83605; 83690; 83735; 83880; 84100; 84132; 84134; 84145; 84295; 84439; 84443; 84484; 85014; 85025; 85610; 85730; 86850; 86900; 86901; 87040; 87070; 87205; 87328; 87329; 87449; 87493; 87493-59; 87641; 92610-GN; 93005; 94002; 94003; 94640; 94660; 94667; 94668; 94770; 95816; 96361; 96365; 96372; 96375; 97163-GP; 99291; A9270-GY; C9113; G8978-CN-GP; G8979-CN-GP; G8980-CN-GP; G8996-CM-GN; G8997-CM-GN; G8998-CM-GN; J0330; J1200; J1940; J2543; J2930; J3010; J3370; J3411; J3475; P9047; Q9967

== ENCOUNTER 2017-05-03 18:22 | Inpatient (IN) | payer OTHER | END 2017-05-04 07:35 | disposition E | DRG 54 | LOC: 2SO 18:22 | DX: C71.9 Malignant neoplasm of brain, unspecified (principal); J96.90 Respiratory failure, unspecified, unspecified whether with hypoxia or hypercapnia; J90 Pleural effusion, not elsewhere classified; N17.9 Acute kidney failure, unspecified; Z51.5 Encounter for palliative care; G40.909 Epilepsy, unspecified, not intractable, without status epilepticus; E11.9 Type 2 diabetes mellitus without complications | CPT/HCPCS: A9270-GY ==